=== PATIENT | female | born 1985 | race Caucasian/White ===

== ENCOUNTER 2016-10-10 11:03 | Emergency (ER) | payer OTHER ==
[2016-10-10 11:06] VITALS: BP 99/65
[2016-10-10] MEDS ORDERED: Ketorolac INJ* 30 MG/ML 1 ML VIAL IV PUSH ONE (11:09)
[2016-10-10] MEDS ORDERED: Ondansetron INJ* 2 MG/ML VIAL ONE (11:09)
[2016-10-10] MEDS ORDERED: Ondansetron INJ* 2 MG/ML VIAL IV ONE ×2 (11:09→12:18)
[2016-10-10] MEDS ORDERED: NS 0.9% 1000 ML* 1,000 ML IV ONE (11:10)
[2016-10-10] MEDS ORDERED: diPHENhydraMINE IV* 50 MG/ML 1 ml VIAL (BENADRYL) IV ONE (11:10)
--- NOTE | 2016-10-10 11:11 | ED ---
Headache - HPI Summary HPI Summary: 31 F presents with headache today. She also admits to nausea and vomiting. She has PMH of migraines. She says the headache developed shortly after she woke up. She states this is like her typically migraine. She has not taken anything for the pain. She says she normally takes Tylenol for the pain and it resolves but this time the pain is a lot worst. She admits to light sensitivity but denies any weakness, numbness, or blurry vision. She denies any abdominal pain, neck pain, or recent illness. She does not follow with anyone for her headaches. She states there is no change that she is . - History Of Current Complaint Chief Complaint: EDHeadache Stated Complaint: MIGRAINE WITH VOMITING Time Seen by Provider: 10/10/16 11:06 Hx Last Menstrual Period: 04/27/16 - Allergies/Home Medications Allergies/Adverse Reactions: Allergies Allergy/AdvReac Type Severity Reaction Status Date / Time No Known Allergies Allergy Verified 05/31/16 11:42 PMH/Surg Hx/FS Hx/Imm Hx Endocrine/Hematology History: Denies: Hx Diabetes, Hx Thyroid Disease Cardiovascular History: Denies: Hx Congestive Heart Failure, Hx Hypertension Respiratory History: Denies: Hx Asthma, Hx Chronic Obstructive Pulmonary Disease (COPD) GI History: Denies: Hx Ulcer History: Reports: Hx Kidney Stones - 2004 Musculoskeletal History: Reports: Other Musculoskeletal History - Nasal FX w/ surgery Sensory History: Reports: Hx Contacts or Glasses Opthamlomology History: Reports: Hx Contacts or Glasses Neurological History: Reports: Hx Migraine - Surgical History Surgery Procedure, Year, and Place: nasal fx- surgically repaired Infectious Disease History: No Infectious Disease History: Denies: Hx Clostridium Difficile, Hx Hepatitis, Hx Human Immunodeficiency Virus (HIV), Hx of Known/Suspected MRSA, Hx Shingles, Hx Tuberculosis, Hx Known/ Suspected VRE, Hx Known/Suspected VRSA, History Other Infectious Disease, Traveled Outside the [place] in Last 30 Days - Family History Known Family History: Positive: Other - no fam hx stroke Negative: Hypertension - Social History Alcohol Use: Occasionally Alcohol Amount: twice a week Hx Substance Use: Yes Substance Use Type: Reports: None Substance Use Comment - Amount & Last Used: LAST USED OPIATES ON 08/06/15 Hx Tobacco Use: Yes Smoking Status (MU): Current Every Day Smoker Review of Systems Negative: Fever Positive: Photophobia. Negative: Blurred Vision, Diplopia Negative: Chest Pain Negative: Shortness Of Breath Positive: Headache All Other Systems Reviewed And Are Negative: Yes Physical Exam Triage Information Reviewed: Yes Vital Signs On Initial Exam: Initial Vitals Temp Pulse Resp BP Pulse Ox 98.1 F 65 16 99/65 99 10/10/16 11:04 10/10/16 11:04 10/10/16 11:04 10/10/16 11:04 10/10/16 11:04 Vital Signs Reviewed: Yes Appearance: Positive: Well-Appearing Skin: Positive: Warm, Dry Head/Face: Positive: Normal Head/Face Inspection Eyes: Positive: Normal, EOMI, MAGAN, Conjunctiva Clear ENT: Positive: Normal ENT inspection, Pharynx normal, TMs normal, Other - no sinus tenderness Neck: Positive: Supple, Nontender, No Lymphadenopathy Respiratory/Lung Sounds: Positive: Clear to Auscultation, Breath Sounds Present Cardiovascular: Positive: Normal, RRR Abdomen Description: Positive: Nontender, Soft Bowel Sounds: Positive: Present Neurological: Positive: Sensory/Motor Intact, Alert, Oriented to Person Place, Time, CN Intact II-III Diagnostics - Vital Signs Vital Signs Temp Pulse Resp BP Pulse Ox 10/10/16 11:04 98.1 F 65 16 99/65 99 - Laboratory Lab Statement: Any lab studies that have been ordered have been reviewed, and results considered in the medical decision making process. Re-Evaluation - Re-Evaluation First Eval Re-Evaluation Time: 11:52 Change: Improved Comment: Headache has resolved, states would like 20 mins to take nap Second Eval Re-Evaluation Time: 12:25 Change: Unchanged Comment: states would like some more zofran so can make sure nausea is resolved when sits up Third Eval Re-Evaluation Time: 12:48 Change: Unchanged Comment: patient states headache resolved and is ready for d/c Headache Course/Dx - Course Course Of Treatment: 31 F presents with headache for a couple hours. Headache is the same that she has had in the past. usually resolve with tyenlol but she states that pain is worst and she started vomiting so was not able to take any medication. neuro exam normal, gave migraine cocktail, headache resolved, d/c home will return if develop any signs of meningitis or other warning signs will return, patient agrees with plan - Diagnoses Differential Diagnosis/HQI/PQRI: Meningitis, Migraine, Tension Headache, Viral Syndrome Provider Diagnoses: Headache Discharge - Discharge Plan Condition: Good Disposition: HOME Prescriptions: Ondansetron TAB* [Zofran Tab*] 4 mg PO Q6H PRN #12 tab PRN Reason: Nausea Patient Education Materials: Migraine Headache (ED) Referrals: [facility] [Outside] Additional Instructions: Take Tylenol or ibuprofen for pain every 6 hours Take Zofran every 6 hours for nausea as needed Establish care with primary care physician and follow up about headaches Return to ED if develop fever, neck stiffness, or any new or worsening symptoms
== END 2016-10-10 14:10 | disposition home or self-care (01) ==
LOC: ED 11:03
DX: R51 Headache (principal); F17.210 Nicotine dependence, cigarettes, uncomplicated; H53.149 Visual discomfort, unspecified; R11.2 Nausea with vomiting, unspecified
CPT/HCPCS: 96361; 96374; 96375; 99283; J1200; J1885; J2405

== ENCOUNTER 2017-04-13 18:51 | Emergency (ER) | payer OTHER ==
[2017-04-13] MEDS ORDERED: Ibuprofen TAB* 600 MG PO ONE (20:44)
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
[2017-04-13] MEDS ORDERED: oxyCODONE/Acetamin 5/325 MG* TAB PO ONE (22:43)
[2017-04-13] MEDS ORDERED: Amoxicillin/Clavulanate TAB* 875 MG PO ONE (22:43)
[2017-04-13 23:18] VITALS: BP 123/76
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
== END 2017-04-13 23:20 | disposition home or self-care (01) ==
LOC: ED 18:51
DX: S02.40DA Maxillary fracture, left side, initial encounter for closed fracture (principal); S02.82XA Fracture of other specified skull and facial bones, left side, initial encounter for closed fracture; S02.2XXA Fracture of nasal bones, initial encounter for closed fracture; Y04.0XXA Assault by unarmed brawl or fight, initial encounter; Y92.9 Unspecified place or not applicable
CPT/HCPCS: 70450; 70486; 72125; 99283; A9270-GY

== ENCOUNTER → 2017-08-12 08:31 | Emergency (ER) | payer OTHER ==
[~2017-08-12 08:31] MED LIST: Amoxicillin/Clavulanate TAB* 875 MG PO ONE; Ibuprofen TAB* 600 MG PO ONE; Sulfamethox/Trimethoprim DS 800/160* TAB PO ONE
[2017-08-12 08:50] VITALS: BP 102/67
[2017-08-12 09:24] LABS: Hematocrit 40 % (35-47); Hemoglobin 13.3 g/dl (12.0-16.0); Mean Corpuscular HGB Conc 33 g/dl (31-36); Mean Corpuscular Hemoglobin 29 pg (27-31); Mean Corpuscular Volume 89 fL (80-97); Mean Platelet Volume 8 um3 (7.4-10.4); Red Blood Count 4.51 10^6/ul (4.0-5.4); Red Cell Distribution Width 14 % (10.5-15); White Blood Count 23.8 10^3/ul (3.5-10.8)
[2017-08-12 09:25] LABS: Add Diff/Slide Review? Slide Review Added; Comments Flag Yes
--- NOTE | 2017-08-12 09:28 | ED ---
Psychiatric Complaint - HPI Summary HPI Summary: 32 female brought in by police after have a "freak out" and stating she wanted to hurt herself and "didn't want to live anymore". Patient's mother and boyfriend called police. Patient admits to smoking crack this morning and then was upset at her boyfriend and mother. States boyfriend and mother are against her and trying to take her kids from her and she is very stressed out. Patient got upset and yelled in front of EMS and police that she wanted to "kill herself ". However she denies currently being suicidal or homicidal. Denies chest pain, trouble breathing, nausea, vomiting and any other complaints. Denies other alcohol and other drug use. Denies hallucinations and hearing voices. No medications. No previous psych history. No PMHx. Patient was not very communicative during evaluation. - History Of Current Complaint Chief Complaint: [facility] Time Seen by Provider: 08/12/17 08:39 Hx Obtained From: Patient, Other: - police Hx Last Menstrual Period: 04/27/16 Onset/Duration: Sudden Onset Severity Initially: Moderate Severity Currently: Mild Character: Manic, Angry, Frustrated Aggravating Factor(s): Recent Stress Alleviating Factor(s): Nothing - self resolved once arrived at ED Associated Signs And Symptoms: Positive: Negative Has Suicidal: Denies: Thoughts, With A Plan Has Homicidal: Denies: Thoughts, With A Plan Recent Stressor(s): mother and boyfriend threatening to take kids away Ingestion History: Type/Name Of Drug - "smoked crack", Approximate Time Of Ingestion - this morning - Allergies/Home Medications Allergies/Adverse Reactions: Allergies Allergy/AdvReac Type Severity Reaction Status Date / Time No Known Allergies Allergy Verified 05/31/16 11:42 PMH/Surg Hx/FS Hx/Imm Hx Endocrine/Hematology History: Denies: Hx Diabetes, Hx Thyroid Disease Cardiovascular History: Denies: Hx Congestive Heart Failure, Hx Hypertension Respiratory History: Denies: Hx Asthma, Hx Chronic Obstructive Pulmonary Disease (COPD) GI History: Denies: Hx Ulcer History: Reports: Hx Kidney Stones - 2004 Musculoskeletal History: Reports: Other Musculoskeletal History - Nasal FX w/ surgery Sensory History: Reports: Hx Contacts or Glasses Opthamlomology History: Reports: Hx Contacts or Glasses Neurological History: Reports: Hx Migraine - Surgical History Surgery Procedure, Year, and Place: nasal fx- surgically repaired - Immunization History Immunizations Up to Date: Yes Infectious Disease History: No Infectious Disease History: Denies: Hx Clostridium Difficile, Hx Hepatitis, Hx Human Immunodeficiency Virus (HIV), Hx of Known/Suspected MRSA, Hx Shingles, Hx Tuberculosis, Hx Known/ Suspected VRE, Hx Known/Suspected VRSA, History Other Infectious Disease, Traveled Outside the [place] in Last 30 Days - Family History Known Family History: Positive: Other - no fam hx stroke Negative: Hypertension - Social History Alcohol Use: Occasionally Alcohol Amount: twice a week Hx Substance Use: Yes Substance Use Type: Reports: Cocaine, Marijuana Substance Use Comment - Amount & Last Used: LAST USED OPIATES ON 08/06/15 Hx Tobacco Use: Yes Smoking Status (MU): Current Every Day Smoker Review of Systems Constitutional: Negative Cardiovascular: Negative Respiratory: Negative Gastrointestinal: Negative Musculoskeletal: Negative Positive: Anxious All Other Systems Reviewed And Are Negative: Yes Physical Exam Triage Information Reviewed: Yes Vital Signs On Initial Exam: Initial Vitals Temp Pulse Resp BP Pulse Ox 98.9 F 125 20 125/85 96 08/12/17 08:32 08/12/17 08:32 08/12/17 08:32 08/12/17 08:32 08/12/17 08:32 slight tachycardia noted however patient anxious, just experienced an intense event Vital Signs Reviewed: Yes Appearance: Positive: Well-Appearing, No Pain Distress, Well-Nourished Skin: Positive: Warm, Skin Color Reflects Adequate Perfusion, Dry, Erythema @ - small bumps/bites rash throughout skin exam hands and feet, no abscesses. Negative: Cold, Numb, Cyanosis @, Jaundiced Head/Face: Positive: Normal Head/Face Inspection - small contusion with an abrasion noted on right side of forehead, patient states she does not know how she got it but it is from today. Negative: Scalp Eyes: Positive: Normal, EOMI, MAGAN, Conjunctiva Clear ENT: Positive: Normal ENT inspection, Hearing grossly normal, Pharynx normal, Nasal congestion, TMs normal. Negative: TM bulging, TM dull Neck: Positive: Supple, Nontender Respiratory/Lung Sounds: Positive: Clear to Auscultation, Breath Sounds Present , Decreased Breath Sounds. Negative: Rales, Rhonchi, Wheezes Cardiovascular: Positive: Normal, RRR, Pulses are Symmetrical in both Upper and Lower Extremities. Negative: Leg Edema Left, Leg Edema Right Abdomen Description: Positive: Nontender, Soft Bowel Sounds: Positive: Present Musculoskeletal: Positive: Normal, Strength/ROM Intact Neurological: Positive: Normal, Sensory/Motor Intact, Alert, Oriented to Person Place, Time, CN Intact II-III, Reflexes Intact, NV Bundle Intact Distally, Normal Gait Psychiatric: Positive: Patient Uncooperative for Exam - not very communicative and appears angry - [place] Coma Scale Coma Scale Total: 15 Diagnostics - Vital Signs Vital Signs Temp Pulse Resp BP Pulse Ox 08/12/17 08:41 97.9 F 115 18 102/67 99 08/12/17 08:32 98.9 F 125 20 125/85 96 - Laboratory Result Diagrams: 08/12/17 09:07 08/12/17 09:07 Lab Statement: Any lab studies that have been ordered have been reviewed, and results considered in the medical decision making process. - Radiology chest Xray Interpretation: No Acute Changes - No radiographic evidence of acute cardiopulmonary disease. Radiology Interpretation Completed By: Radiologist Course/Dx - Course Course Of Treatment: labs and urinalysis obtained. also obtained hcg test which was negative. labs revealed elevated WBC of 23.4 with left shift. Rest of labs unremarkable. Patient is asymptomatic denying symptoms, fever and signs of infection. chest xray obtained and negative. Does however have possible infected skin wounds/cellulitis or bites throughout skin possibly contributing to WBC elevation. Patient later shared that she has sinus issues, and that may be the source of her infection, does admit to nasal congestion and had surgery on sinuses back in april of 2017. patient denied SOB, chest pain, nausea, abscess, IV drug use, vomiting, fever/chills. afebrile. normal vitals other than slight tachycardia. will give antibiotics, augmentin, for possible skin infection, sinusitis and due to WBC with left shift. cleared for [facility]. no other concerning medical etiology at this time. no medications. patient appears frustrated and upset, after "smoking crack" however denies suicidal thoughts at this time. Somewhat uncooperative on eval and with communicating. Denies any symptoms or complaints throughout exam. After speaking with [facility] patient will be discharged home with outpatient follow up by Dr Harrison diagnosis of substance abuse disorder at 2:00pm. - Differential Dx/Clinical Impression Differential Diagnosis/HQI/PQRI: Positive: Acute Psychosis, Anxiety, Depression , Suicidal Ideation, Other - drug use Provider Diagnosis: Cellulitis, Sinusitis, Substance abuse - Physician Notifications Discussed Care Of Patient With: Dr Christy Herrera Time Discussed With Above Provider: 14:03 Patient Is Medically Stable For: Psych Evaluation Discharge - Discharge Plan Condition: Stable Disposition: HOME Prescriptions: Amoxicillin/Clavulanate TAB* [Augmentin TAB 875*] 875 mg PO BID #18 tab Referrals: No Primary Care Phys,NOPCP [Primary Care Provider] - [facility] PHYSICIAN REFERRAL [Outside]
[2017-08-12 09:33] LABS: ALT 14 U/L (7-52); AST 19 U/L (13-39); Albumin 4.2 g/dL (3.2-5.2); Alkaline Phosphatase 70 U/L (34-104); Anion Gap 9 mmol/L (2-11); BUN/Creatinine Ratio 11.5 (8-20); Blood Urea Nitrogen 14 mg/dL (6-24); CO2 Carbon Dioxide 24 mmol/L (22-32); Calcium 9.3 mg/dL (8.6-10.3); Chloride 104 mmol/L (101-111); EGFR African American 65.7 (>60); EGFR Non-African American 51.1 (>60); Globulin 2.6 g/dL (2-4); Glucose 71 mg/dL (70-100); Potassium 3.1 mmol/L (3.5-5.0); Sodium 137 mmol/L (133-145); Total Protein 6.8 g/dL (6.4-8.9)
[2017-08-12 09:58] LABS: Acetaminophen < 15 mcg/mL; Alcohol < 10 mg/dL (<10); Salicylate < 2.50 mg/dL (<30)
[2017-08-12 10:13] LABS: TSH (Thyroid Stimulating Horm) 0.78 mcIU/mL (0.34-5.60)
[2017-08-12 11:20] LABS: Urine Bacteria Absent (Absent); Urine Bilirubin Negative (Negative); Urine Glucose Negative (Negative); Urine Nitrite Negative (Negative)
[2017-08-12 11:23] LABS: Benzodiazepine Urine Screen None Detected (None Detect)
--- NOTE | 2017-08-12 12:00 | RAD ---
INDICATION: Leukocytosis COMPARISON: None TECHNIQUE: PA and lateral views of the chest were obtained. FINDINGS: The heart and mediastinum are normal in size and contour. The lungs are grossly clear. There is no evidence of large pleural effusion. Visualized bones are normal for the patient's age. There is no radiographic evidence of free air beneath the diaphragm IMPRESSION: No radiographic evidence of acute cardiopulmonary disease.
--- NOTE | 2017-08-14 09:11 | PN ---
Progress Note - Progress Note Date of Service: 08/12/17 Note: brought in as a 941. no urinary symptoms, urinalysis was unremarkable. preliminary urine culture results show 75-100,000 of kelb penumoniae. placed on augmentin at d/c. will wait for final culture results.
== END | disposition home or self-care (01) ==
LOC: ED 08:31
DX: L03.90 Cellulitis, unspecified (principal); J32.9 Chronic sinusitis, unspecified; F17.210 Nicotine dependence, cigarettes, uncomplicated; F19.10 Other psychoactive substance abuse, uncomplicated
CPT/HCPCS: 36415; 71020; 80053; 80307; 80320; 80329; 81003; 81015; 84443; 84702; 85025; 87077; 87086; 87186; 99284; A9270-GY; G0480

== ENCOUNTER 2017-12-16 12:54 | Emergency (ER) | payer OTHER ==
[2017-12-16 13:30] VITALS: BP 108/71
--- NOTE | 2017-12-16 14:53 | UC ---
Beata Mckenna Gabriel, scribed for April Ruiz MD on 12/16/17 at 1444 . Ear Complaint HPI - HPI Summary HPI Summary: This patient is a 32 year old F presenting to [facility] with a chief complaint of right ear pain that began a week ago. The patient rates the pain 7/10 in severity. Patient reports that last night her cervical lymph nodes began to swell and her throat became sore. She also c/o low grade fever, sore throat, frontal headache, nasal discharge, nausea, and decreased hearing in her right ear. Patient denies vomiting, vertigo, fatigue, and ABD pain. - History of Current Complaint Chief Complaint: UCGeneralIllness Stated Complaint: EAR PAIN SWOLLEN GLANDS Time Seen by Provider: 12/16/17 14:34 Hx Obtained From: Patient Hx Last Menstrual Period: 12/11/17 Onset/Duration: Lasting Weeks - 1, Still Present Severity Initially: Moderate Severity Currently: Moderate Pain Intensity: 7 Pain Scale Used: 0-10 Numeric Associated Signs/Symptoms: Positive: Hearing Loss - Allergies/Home Medications Allergies/Adverse Reactions: Allergies Allergy/AdvReac Type Severity Reaction Status Date / Time No Known Allergies Allergy Verified 12/16/17 13:22 Home Medications: Home Medications Citalopram TAB* [CeleXA TAB*] 20 mg PO DAILY 12/16/17 [History Confirmed ] Gabapentin CAP(*) [Neurontin 300 CAP(*)] 300 mg PO BEDTIME 12/16/17 [History Confirmed 12/16/17] OXcarbazepine [Trileptal 150 mg] 150 mg PO DAILY 12/16/17 [History Confirmed ] PMH/Surg Hx/FS Hx/Imm Hx GI/ History: Kidney Stones Psychological History: Anxiety, Depression - Surgical History Surgical History: Yes Surgery Procedure, Year, and Place: nasal fx- surgically repaired 2016 - Family History Known Family History: Positive: Other - no fam hx stroke Negative: Hypertension Family History: mother has hypothyroidism - Social History Occupation: Unemployed Lives: With Family Alcohol Use: None Alcohol Amount: twice a week Substance Use Type: None Substance Use Comment - Amount & Last Used: LAST USED OPIATES ON 08/06/15 Smoking Status (MU): Current Every Day Smoker Length of Time of Smoking/Using Tobacco: 1 PPD - Immunization History Most Recent Influenza Vaccination: 06/20/12 Most Recent Tetanus Shot: Unsure Most Recent Pneumonia Vaccination: never Review of Systems Constitutional: Fever Skin: Negative Eyes: Negative ENT: Sore Throat, Ear Ache, Nasal Discharge, Other - swollen cervical lymph nodes and decreased hearing in her right ear Respiratory: Negative Cardiovascular: Negative Gastrointestinal: Nausea Genitourinary: Negative Motor: Negative Neurovascular: Negative Musculoskeletal: Negative Neurological: Negative Psychological: Negative Is Patient Immunocompromised?: No All Other Systems Reviewed And Are Negative: Yes Physical Exam Triage Information Reviewed: Yes Appearance: Ill-Appearing - looks mildly unwell, fatigued Vital Signs: Initial Vital Signs Temp 99.2 F 12/16/17 13:24 Pulse 102 12/16/17 13:24 Resp 20 12/16/17 13:24 BP 108/71 12/16/17 13:24 Pulse Ox 100 12/16/17 13:24 Eyes: Positive: Conjunctiva Clear ENT: Positive: Pharyngeal erythema Neck: Positive: Supple, Nontender, Enlarged Nodes @ - large right tonsillar node 2 x 2 cm, mobile and compressible. 1 cm posterior cervical node on the right. Respiratory: Positive: Lungs clear, Normal breath sounds Cardiovascular: Positive: RRR, No Murmur Musculoskeletal Exam: Normal Neurological: Positive: Alert, Muscle Tone Normal Psychological Exam: Other - mildly flat affect. Skin Exam: Normal Ear Complaint Course/Dx - Course Course Of Treatment: The patient is a 32 y/o F that present with right ear pain , sore throat, frontal [place], and nasal discharge that began a week ago. Pt medications reviewed this visit. Pt was encouraged to stop smoking. - Differential Dx/Diagnosis Differential Diagnosis/HQI/PQRI: Otitis Externa, Otitis Media, Pharyngitis, URI , Other - sinusitis Provider Diagnoses: sinusitis Discharge - Sign-Out/Discharge Documenting (check all that apply): Discharge - Discharge Plan Condition: Stable Disposition: HOME Prescriptions: Amoxicillin/Clavulanate TAB* [Augmentin TAB 875*] 875 mg PO BID #20 tab Patient Education Materials: Sinusitis (ED) Forms: *Work Release Referrals: No Primary Care Phys,NOPCP [Primary Care Provider] - Additional Instructions: Begin augmentin for treatment of sinusitis Use ibuprofen or acetaminophen as needed for control of pain. Flonast (fluticasone) spray might help to relieve the ear pressure by helping to open the Eustachian tube. - Billing Disposition and Condition Condition: STABLE Disposition: HOME The documentation as recorded by the Beata mehta Gabriel accurately reflects the service I personally performed and the decisions made by me, April Ruiz MD.
== END 2017-12-16 14:56 | disposition home or self-care (01) ==
LOC: UCEAST 12:54
DX: J32.9 Chronic sinusitis, unspecified (principal); H92.01 Otalgia, right ear; R50.9 Fever, unspecified; Z87.442 Personal history of urinary calculi; F41.9 Anxiety disorder, unspecified; F32.9 Major depressive disorder, single episode, unspecified; F17.210 Nicotine dependence, cigarettes, uncomplicated
CPT/HCPCS: 99212; G0463

== ENCOUNTER 2018-01-31 12:43 | Emergency (ER) | payer MEDICAID, OTHER ==
[2018-01-31 12:58] VITALS: BP 103/56
[2018-01-31] MEDS ORDERED: cefTRIAXone VIAL(*) 250 MG VIAL IM ONE (14:02)
[2018-01-31] MEDS ORDERED: Azithromycin TAB* 250 MG PO ONE (14:02)
[2018-01-31] MEDS ORDERED: Lidocaine 1% INJ* 10 MG/ML 30 ML SDV INJ ONE (14:06)
[2018-01-31] MEDS ORDERED: Lidocaine 1% MPF* 2 ML VIAL INJ ONE (14:13)
--- NOTE | 2018-01-31 14:13 | UC ---
Abdominal Pain Female HPI - HPI Summary HPI Summary: 32 y/o female w no PMH, 1 vaginal 5 years ago, recent visit to [facility] observer - abn pap, scheduled for cylop, presents with 24 hours of diarrhea x 10 episodes , no n/v, no urinary symptoms, + vaginal discharge, lower abdominal pain b/l. no prior symptoms, denies pregnany- last sexual activity 3 weeks ago, + condom use, took recent test which was negative. Also recently had small plastic bag of weed in vaginal area for several hours, difficulty removing , wondering if pain caused by this. - History of Current Complaint Chief Complaint: UCAbdominalPain Stated Complaint: ABDOMINAL PAIN Time Seen by Provider: 01/31/18 13:03 Hx Obtained From: Patient Hx Last Menstrual Period: 01/21/18 ?: No - Urine test Onset/Duration: Sudden Onset Severity Currently: Moderate Pain Intensity: 8 Pain Scale Used: 0-10 Numeric Allergies/Adverse Reactions: Allergies Allergy/AdvReac Type Severity Reaction Status Date / Time No Known Allergies Allergy Verified 01/31/18 12:53 PMH/Surg Hx/FS Hx/Imm Hx Previously Healthy: Yes - Surgical History Surgical History: Yes Surgery Procedure, Year, and Place: nasal fx- surgically repaired 2016 - Family History Known Family History: Positive: Other - no fam hx stroke Negative: Hypertension Family History: mother has hypothyroidism - Social History Alcohol Use: None Alcohol Amount: twice a week Substance Use Type: None Substance Use Comment - Amount & Last Used: LAST USED OPIATES ON 08/06/15 Smoking Status (MU): Heavy Every Day Tobacco Smoker Type: Cigarettes Length of Time of Smoking/Using Tobacco: 1 PPD - Immunization History Most Recent Influenza Vaccination: 06/20/12 Most Recent Tetanus Shot: Unsure Most Recent Pneumonia Vaccination: never Review of Systems Gastrointestinal: Abdominal Pain, Diarrhea Genitourinary: Vaginal/Penile Discharge, Vaginal/Penile Pain, Vaginal/Penile Tenderness Psychological: Anxious Is Patient Immunocompromised?: No All Other Systems Reviewed And Are Negative: Yes Physical Exam Triage Information Reviewed: Yes Appearance: Well-Appearing, No Pain Distress, Well-Nourished Vital Signs: Initial Vital Signs Temp 98.9 F 01/31/18 12:49 Pulse 103 01/31/18 12:49 Resp 18 01/31/18 12:49 BP 103/56 01/31/18 12:49 Pulse Ox 97 01/31/18 12:49 Vital Signs Reviewed: Yes Eyes: Positive: Conjunctiva Clear Abdomen Description: Positive: No Organomegaly, Soft, Other: - tenderness at b/ l lower abdomen and suprapubic, + cervical motion tenderness. Negative: CVA Tenderness (R), CVA Tenderness (L), Distended, Guarding Bowel Sounds: Positive: Present Pelvic Exam: Positive: External Exam Normal, Cervicitis - strawberry cervix with white coating over cervix, Discharge - milky, thick discharge no odor, Tender w/ Cervical Motion, Tender Adnexa, Tender Uterus, Other - + adenal tenderness b/l. Negative: Active Bleeding, Blood, Lesions, Mass, Ulcers Musculoskeletal: Positive: Strength Intact Neurological: Positive: Alert Psychological Exam: Normal Skin Exam: Normal Skin: Positive: Other - no rashes lesions Abd Pain Female Course/Dx - Course Course Of Treatment: pelvic exam suspcious for STD infection, urine preg. ceftraixone, azithr given. follow up with [facility]. return if symptoms worsen or no improvement within 24-48 hours - Differential Dx/Diagnosis Differential Diagnosis: Pelvic Inflammatory Disease, , Urinary Tract Infection Provider Diagnoses: PID Discharge - Sign-Out/Discharge Documenting (check all that apply): Discharge/Admit/Transfer - Discharge Plan Condition: Good Disposition: HOME Patient Education Materials: Cervicitis (ED), Sexually Transmitted Diseases (ED ), Chlamydia (ED) Referrals: No Primary Care Phys,NOPCP [Primary Care Provider] - Additional Instructions: - return to UC or ER within 24-48 hours if symptoms worsen or do not improve or fever > 101 - Tylenol, motrin as needed for pain - Follow up with [facility] - Testing should be completed within 48-72 hours, you may call for results or we will call with positive results - no sexual intercourse until results given - Billing Disposition and Condition Condition: GOOD Disposition: HOME
--- NOTE | 2018-02-01 16:37 | UC ---
- Progress Note Progress Note: PLS CALL PT. SWAB POSITIVE FOR BV. METRONIDAZOLE 500MG BID X 7 DAYS. NO ALCOHOL WHILE ON THIS MED. ERX SENT TO. [facility]. F/U PCP - DIPTI MAYORGA MD Discharge - Sign-Out/Discharge Documenting (check all that apply): Post-Discharge Follow Up - Discharge Plan Condition: Good Disposition: HOME Patient Education Materials: Cervicitis (ED), Chlamydia (ED), Sexually Transmitted Diseases (ED) Referrals: No Primary Care Phys,NOPCP [Primary Care Provider] - Additional Instructions: - return to UC or ER within 24-48 hours if symptoms worsen or do not improve or fever > 101 - Tylenol, motrin as needed for pain - Follow up with [facility] - Testing should be completed within 48-72 hours, you may call for results or we will call with positive results - no sexual intercourse until results given - Billing Disposition and Condition Condition: GOOD Disposition: HOME
== END 2018-01-31 14:27 | disposition home or self-care (01) ==
LOC: UCEAST 12:43
DX: N73.9 Female pelvic inflammatory disease, unspecified (principal); N76.0 Acute vaginitis; F17.210 Nicotine dependence, cigarettes, uncomplicated
CPT/HCPCS: 84702; 87480; 87491; 87510; 87591; 87661; 96372; 99212; A9270-GY; G0463; J0696

== ENCOUNTER 2018-04-18 20:17 | Emergency (ER) | payer OTHER ==
[2018-04-18 20:32] VITALS: BP 112/77
--- NOTE | 2018-04-18 21:24 | UC ---
Abdominal Pain Female HPI - HPI Summary HPI Summary: Patient is here tonight with 2 chief complaints. #1 patient has dental pain and swelling of the right anterior cervical lymph node seen a dentist last week has not been yet approved for flu canal no antibiotics started. #2 patient has had 2 or 3 days of worsening nausea, night sweats, has been eating very little due to nausea. Only liquids tolerated today - History of Current Complaint Chief Complaint: UCDentalProblem Stated Complaint: DENTAL COMPLAINT Time Seen by Provider: 04/18/18 21:09 Hx Obtained From: Patient Hx Last Menstrual Period: 03/16/18 ?: No Onset/Duration: Sudden Onset - 2-3 days of worsening abdomen pain, Gradual Onset - 2-3 weeks of worsening right upper incisor pain and gum swelling, Still Present Timing: Constant Pain Intensity: 8 Pain Scale Used: 0-10 Numeric Location: Discrete At: RLQ Aggravating Factor(s): Food Alleviating Factor(s): Nothing Associated Signs and Symptoms: Positive: Nausea, Diarrhea, Other: - night sweats Allergies/Adverse Reactions: Allergies Allergy/AdvReac Type Severity Reaction Status Date / Time No Known Allergies Allergy Verified 04/18/18 20:32 Home Medications: Home Medications traZODone TAB* [Desyrel TAB*] 25 mg PO BEDTIME 04/18/18 [History Confirmed 04/18] PMH/Surg Hx/FS Hx/Imm Hx Previously Healthy: No Psychological History: Depression, Bipolar Disorder, Other Other Psychological History: substance abuse disorder in remission - Surgical History Surgical History: Yes Surgery Procedure, Year, and Place: nasal fx- surgically repaired 2016 - Family History Known Family History: Positive: Other - no fam hx stroke Negative: Hypertension Family History: mother has hypothyroidism - Social History Occupation: Student Lives: With Family Alcohol Use: None Alcohol Amount: twice a week Substance Use Type: None Substance Use Comment - Amount & Last Used: LAST USED OPIATES ON 08/06/15 Smoking Status (MU): Heavy Every Day Tobacco Smoker Type: Cigarettes Length of Time of Smoking/Using Tobacco: 1 PPD Have You Smoked in the Last Year: Yes - Immunization History Most Recent Influenza Vaccination: 06/20/12 Most Recent Tetanus Shot: Unsure Most Recent Pneumonia Vaccination: never Review of Systems Constitutional: Fever, Chills Skin: Negative Eyes: Negative ENT: Dental Pain Respiratory: Negative Cardiovascular: Negative Gastrointestinal: Abdominal Pain, Diarrhea, Nausea Genitourinary: Negative Motor: Negative Neurovascular: Negative Musculoskeletal: Negative Neurological: Negative Psychological: Negative Is Patient Immunocompromised?: No All Other Systems Reviewed And Are Negative: Yes Physical Exam Triage Information Reviewed: Yes Appearance: No Pain Distress, Ill-Appearing - mild, Thin Vital Signs: Initial Vital Signs Temp 97.9 F 04/18/18 20:28 Pulse 71 04/18/18 20:28 Resp 18 04/18/18 20:28 BP 112/77 04/18/18 20:28 Pulse Ox 100 04/18/18 20:28 Vital Signs Reviewed: Yes Eye Exam: Normal Eyes: Positive: Conjunctiva Clear ENT Exam: Normal ENT: Positive: Normal ENT inspection, Hearing grossly normal, Pharynx normal, TMs normal, Dental tenderness, Uvula midline. Negative: Nasal congestion, Trismus, Muffled voice, Hoarse voice, Sinus tenderness Dental Exam: Other Dental: Positive: Percussion Tenderness @ - #8, Abscess @ - above upper incisors Neck exam: Normal Neck: Positive: Supple, Nontender, Enlarged Nodes @ - right anterior cervical lymph swelling Respiratory Exam: Normal Respiratory: Positive: Chest non-tender, No respiratory distress, No accessory muscle use Cardiovascular Exam: Normal Cardiovascular: Positive: RRR, No Murmur, Pulses Normal, Brisk Capillary Refill Abdominal Exam: Other Abdomen Description: Positive: No Organomegaly, Soft, McBurney's Point Tenderness. Negative: CVA Tenderness (R), CVA Tenderness (L) Bowel Sounds: Positive: Present Musculoskeletal Exam: Normal Musculoskeletal: Positive: Strength Intact, ROM Intact, No Edema Neurological Exam: Normal Neurological: Positive: Alert, Muscle Tone Normal Psychological Exam: Normal Skin Exam: Normal Abd Pain Female Course/Dx - Course Course Of Treatment: will treat dental issue with amoxicillin and Ibuprofen, Patient to remian NPO and go to emergency department for further evaluation of abdomen pain - Differential Dx/Diagnosis Provider Diagnoses: Dental abscess, RLQ Pain Discharge - Sign-Out/Discharge Documenting (check all that apply): Patient Departure - Discharge Plan Condition: Fair Disposition: HOME-RECOMMEND TO ED Prescriptions: Amoxicillin PO (*) [Amoxicillin 500 MG CAP*] 500 mg PO TID #30 cap Patient Education Materials: Dental Abscess (ED), Acute Abdominal Pain (ED) Referrals: No Primary Care Phys,NOPCP [Primary Care Provider] - Additional Instructions: Please go to the emergency department tonight for evaluation of nausea, night sweats right lower quad. pain - Billing Disposition and Condition Condition: FAIR Disposition: Home-Recommend to ED
== END 2018-04-18 21:30 | disposition home health service (06) ==
LOC: UCEAST 20:17
DX: K04.7 Periapical abscess without sinus (principal); R10.31 Right lower quadrant pain; F32.9 Major depressive disorder, single episode, unspecified; F31.9 Bipolar disorder, unspecified; F17.210 Nicotine dependence, cigarettes, uncomplicated; Z79.899 Other long term (current) drug therapy
CPT/HCPCS: 99212; G0463

== ENCOUNTER 2018-04-19 09:41 | Emergency (ER) | payer OTHER ==
--- NOTE | 2018-04-19 10:00 | ED ---
Neck Pain - HPI Summary HPI Summary: The patient is a 32 y/o female presenting to the [facility] c/o a ruptured dental abscess since 3 days ago. She went to Urgent Care last night but did not have any procedures done. She notes dental pain, swollen neck, R lower abdominal pain , nausea, night sweats, chills and, diarrhea. The pt. denies fever. She has not taken any antibiotics for the abscess but has an upcoming follow-up appointment with her dentist. Pt. denies the possibility of . LNMP 2 weeks ago. PMHx: Bipolar Disorder This is tyson Phillips documenting for attending Dr. Roberto Mota - History of Current Complaint Chief Complaint: EDGeneral Stated Complaint: ABSCESS/GENERAL ILLNESS Time Seen by Provider: 04/19/18 09:50 Hx Obtained From: Patient Hx Last Menstrual Period: 03/16/18 Onset/Duration Of Injury/Symptoms: Days - 3 days ago Onset/Duration: Still Present Severity Initially: Severe Severity Currently: Severe Pain Intensity: 8 Pain Scale Used: 0-10 Numeric Associated Signs & Symptoms: Positive: Swelling - Right side of the neck - Allergies/Home Medications Allergies/Adverse Reactions: Allergies Allergy/AdvReac Type Severity Reaction Status Date / Time No Known Allergies Allergy Verified 04/19/18 09:59 PMH/Surg Hx/FS Hx/Imm Hx Previously Healthy: No Endocrine/Hematology History: Denies: Hx Diabetes, Hx Thyroid Disease Cardiovascular History: Denies: Hx Congestive Heart Failure, Hx Hypertension Respiratory History: Denies: Hx Asthma, Hx Chronic Obstructive Pulmonary Disease (COPD) GI History: Denies: Hx Ulcer History: Reports: Hx Kidney Stones - 2004 Musculoskeletal History: Reports: Other Musculoskeletal History - Nasal FX w/ surgery Sensory History: Reports: Hx Contacts or Glasses Opthamlomology History: Reports: Hx Contacts or Glasses Neurological History: Reports: Hx Migraine Psychiatric History: Reports: Hx Bipolar Disorder Denies: Hx Eating Disorder, Hx of Violent Episodes Against Others - Surgical History Surgery Procedure, Year, and Place: nasal fx- surgically repaired 2016 Infectious Disease History: No Infectious Disease History: Denies: Hx Clostridium Difficile, Hx Hepatitis, Hx Human Immunodeficiency Virus (HIV), Hx of Known/Suspected MRSA, Hx Shingles, Hx Tuberculosis, Hx Known/ Suspected VRE, Hx Known/Suspected VRSA, History Other Infectious Disease, Traveled Outside the [place] in Last 30 Days - Family History Known Family History: Positive: Other - no fam hx stroke Negative: Hypertension Family History: mother has hypothyroidism - Social History Occupation: Unemployed Lives: With Family Alcohol Use: None Alcohol Amount: twice a week Hx Substance Use: Yes Substance Use Type: Reports: None Substance Use Comment - Amount & Last Used: LAST USED OPIATES ON 08/06/15 Hx Tobacco Use: Yes Smoking Status (MU): Heavy Every Day Tobacco Smoker Type: Cigarettes Length of Time of Smoking/Using Tobacco: 1 PPD Have You Smoked in the Last Year: Yes Review of Systems Positive: Chills, Skin Diaphoresis. Negative: Fever ENT: Other - Positive: Right neck swelling Positive: Dental Pain Positive: Diarrhea, Nausea All Other Systems Reviewed And Are Negative: Yes Physical Exam - Summary Physical Exam Summary: Appearance: Well appearing, no pain distress Skin: warm, dry, reflects adequate perfusion Head/face: normal Eyes: EOMI, MAGAN ENT: - No gingival redness or swelling ;no adenopathy; enlarged, slightly tender R tonsil Neck: supple, non-tender Respiratory: CTA, breath sounds present Cardiovascular: RRR, pulses symmetrical Abdomen: non-tender, soft Bowel Sounds: present Musculoskeletal: normal, strength/ROM intact Neuro: normal, sensory motor intact, A&Ox3 Triage Information Reviewed: Yes Vital Signs On Initial Exam: Initial Vitals Temp Pulse Resp BP Pulse Ox 98.8 F 80 16 115/77 100 04/19/18 09:44 04/19/18 09:44 04/19/18 09:44 04/19/18 09:44 04/19/18 09:44 Vital Signs Reviewed: Yes Diagnostics - Vital Signs Vital Signs Temp Pulse Resp BP Pulse Ox 04/19/18 09:44 98.8 F 80 16 115/77 100 - Laboratory Lab Statement: Any lab studies that have been ordered have been reviewed, and results considered in the medical decision making process. Neck Course/Dx - Course Course Of Treatment: Patient with recently diagnosed dental abscess by x-ray was not given antibiotics as a plan to do surgery. No pain at this point but having right-sided adenopathy. Abdomen is soft and nontender. She has had some nausea vomiting and diarrhea. Unlikely these are related. She has not been sexually active and states is not possible. She is feeling okay now and we will start antibiotics. Gale Zhu was given here. She'll follow-up with dental in her primary care physician. - Diagnoses Provider Diagnoses: Gastroenteritis, Dental abscess Discharge - Sign-Out/Discharge Documenting (check all that apply): Patient Departure - DC - Discharge Plan Condition: Good Disposition: HOME Prescriptions: Amoxicillin PO (*) [Amoxicillin 500 MG CAP*] 500 mg PO TID #30 cap Ondansetron HCl [Zofran] 4 mg PO TID PRN #12 tablet PRN Reason: Nausea Patient Education Materials: Dental Abscess (ED), Gastroenteritis (ED) Referrals: [facility] [Provider Group] No Primary Care Phys,NOPCP [Primary Care Provider] - Additional Instructions: Call today to schedule follow-up appointment with your primary care physician and also [facility]. Return with fever, unable to keep down fluids, worse, new symptoms or other concerns as discussed. Drink plenty of fluids, bland diet as tolerated. - Billing Disposition and Condition Condition: GOOD Disposition: Home
[2018-04-19] MEDS ORDERED: Ondansetron ODT TAB* 4 MG PO ONE (10:03)
[2018-04-19 10:32] VITALS: BP 99/68
== END 2018-04-19 10:32 | disposition home or self-care (01) ==
LOC: ED 09:41
DX: K04.7 Periapical abscess without sinus (principal); K52.9 Noninfective gastroenteritis and colitis, unspecified; F31.9 Bipolar disorder, unspecified; F17.210 Nicotine dependence, cigarettes, uncomplicated
CPT/HCPCS: 99282; A9270-GY

== ENCOUNTER 2018-04-27 23:58 | Emergency (ER) | payer OTHER ==
[2018-04-28] MEDS ORDERED: NS 0.9% 1000 ML* 1,000 ML IV ONE ×2 (00:27→03:21)
[2018-04-28] MEDS ORDERED: Charcoal ACTIVATED* 25 GM/120 ML BTL PO ONE (00:27)
--- NOTE | 2018-04-28 00:32 | ED ---
Complex/Multi-Sys Presentation - HPI Summary HPI Summary: This is scribe Travis Graham documenting for attending Ling Locke MD. This patient is a 32 year old F presenting to [facility] with a chief complaint of an overdose since 2 hours ago. Patient reports dizziness and numb lips. She has been having sleep walking issues where she finds herself eating things. Per patient, boyfriend found her eating Trileptal 300mg in cereal in the bathroom tonight. It is unknown how many pills she has taken. She believes it was Trileptal because that was the bottle that was open but reports that she also has many other medications. Patient unsuccessfully tried to make herself throw up. I, Dr. Locke, personally performed the services described in this documentation as scribed in my presence and it is both accurate and complete. - History Of Current Complaint Chief Complaint: EDOverdose Time Seen by Provider: 04/28/18 00:20 Hx Obtained From: Patient Onset/Duration: Sudden Onset Associated Signs And Symptoms: Positive: Dizziness, Other - Numb lips - Allergies/Home Medications Allergies/Adverse Reactions: Allergies Allergy/AdvReac Type Severity Reaction Status Date / Time No Known Allergies Allergy Verified 04/19/18 09:59 PMH/Surg Hx/FS Hx/Imm Hx Endocrine/Hematology History: Denies: Hx Diabetes, Hx Thyroid Disease Cardiovascular History: Denies: Hx Congestive Heart Failure, Hx Hypertension Respiratory History: Denies: Hx Asthma, Hx Chronic Obstructive Pulmonary Disease (COPD) GI History: Denies: Hx Ulcer History: Reports: Hx Kidney Stones - 2004 Musculoskeletal History: Reports: Other Musculoskeletal History - Nasal FX w/ surgery Sensory History: Reports: Hx Contacts or Glasses Opthamlomology History: Reports: Hx Contacts or Glasses Neurological History: Reports: Hx Migraine Psychiatric History: Reports: Hx Bipolar Disorder Denies: Hx Eating Disorder, Hx of Violent Episodes Against Others - Surgical History Surgery Procedure, Year, and Place: nasal fx- surgically repaired 2016 Infectious Disease History: No Infectious Disease History: Denies: Hx Clostridium Difficile, Hx Hepatitis, Hx Human Immunodeficiency Virus (HIV), Hx of Known/Suspected MRSA, Hx Shingles, Hx Tuberculosis, Hx Known/ Suspected VRE, Hx Known/Suspected VRSA, History Other Infectious Disease, Traveled Outside the [place] in Last 30 Days - Family History Known Family History: Positive: Other - no fam hx stroke Negative: Hypertension Family History: mother has hypothyroidism - Social History Occupation: Unemployed Lives: With Family Alcohol Use: None Alcohol Amount: twice a week Hx Substance Use: Yes Substance Use Type: Reports: None Substance Use Comment - Amount & Last Used: LAST USED OPIATES ON 08/06/15 Hx Tobacco Use: Yes Smoking Status (MU): Heavy Every Day Tobacco Smoker Type: Cigarettes Length of Time of Smoking/Using Tobacco: 1 PPD Have You Smoked in the Last Year: Yes Review of Systems Negative: Fever Neurological: Other - Dizziness and numb lips All Other Systems Reviewed And Are Negative: Yes Physical Exam - Summary Physical Exam Summary: VITAL SIGNS: Reviewed. GENERAL: Patient is a well-developed and nourished FEMALE who is lying comfortable in the stretcher. Patient is not in any acute respiratory distress. HEAD AND FACE: No signs of trauma. No ecchymosis, hematomas or skull depressions. No sinus tenderness. EYES: PERRLA, EOMI x 2, No injected conjunctiva, no nystagmus. EARS: Hearing grossly intact. Ear canals and tympanic membranes are within normal limits. MOUTH: Oropharynx within normal limits. NECK: Supple, trachea is midline, no adenopathy, no JVD, no carotid bruit, no c- spine tenderness, neck with full ROM. CHEST: Symmetric, no tenderness at palpation LUNGS: Clear to auscultation bilaterally. No wheezing or crackles. CVS: Regular rate and rhythm, S1 and S2 present, no murmurs or gallops appreciated. ABDOMEN: Soft, non-tender. No signs of distention. No rebound no guarding, and no masses palpated. Bowel sounds are normal. EXTREMITIES: FROM in all major joints, no edema, no cyanosis or clubbing. NEURO: Alert and oriented x 3. No acute neurological deficits. Speech is normal and follows commands. SKIN: Dry and warm Triage Information Reviewed: Yes Vital Signs On Initial Exam: Initial Vitals Temp Pulse Resp BP Pulse Ox 98.9 F 89 20 120/83 99 04/27/18 23:59 04/27/18 23:59 04/27/18 23:59 04/27/18 23:59 04/27/18 23:59 Vital Signs Reviewed: Yes Diagnostics - Vital Signs Vital Signs Temp Pulse Resp BP Pulse Ox 04/27/18 23:59 98.9 F 89 20 120/83 99 - Laboratory Result Diagrams: 04/28/18 00:38 04/28/18 00:38 Lab Statement: Any lab studies that have been ordered have been reviewed, and results considered in the medical decision making process. - EKG 00:55 Cardiac Rate: NL - 71 BPM EKG Rhythm: Sinus Rhythm EKG Interpretation: Everything is normal. Complex Multi-Symp Course/Dx Assessment/Plan: Patient presented with an accidental overdose. She was held and observed until 06:00. Patient will now be discharged home. - Diagnoses Provider Diagnoses: Accidental overdose Discharge - Sign-Out/Discharge Documenting (check all that apply): Patient Departure - D/C - Discharge Plan Condition: Stable Disposition: HOME Patient Education Materials: Adult Overdose (ED) Referrals: No Primary Care Phys,NOPCP [Primary Care Provider] - (Follow up with your [facility] in 1-2 days.) Additional Instructions: Follow up with [facility] at in 1-2 days. Return to the ED for changing or worsening symptoms.
[2018-04-28 00:49] LABS: Urine Appearance Clear; Urine Blood Negative (Negative); Urine Color Straw; Urine Ketones Negative (Negative); Urine Protein Negative (Negative); Urine Specific Gravity 1.009 (1.010-1.030); Urine Urobilinogen Negative (Negative)
[2018-04-28 00:49] LABS: ABS Basophils 0 10^3/ul (0-0.2); ABS Eosinophils 0.2 10^3/ul (0-0.6); ABS Lymphocytes 2.7 10^3/ul (1.0-4.8); ABS Monocytes 0.9 10^3/ul (0-0.8); ABS Neutrophils 9.9 10^3/ul (1.5-7.7); ABS Nucleated RBC 0 10^3/ul; Eosinophil % 1.6 % (0-6); Hematocrit 39 % (35-47); Hemoglobin 13.2 g/dl (12.0-16.0); Lymphocyte % 19.9 % (25-47); Mean Corpuscular HGB Conc 34 g/dl (31-36); Mean Corpuscular Hemoglobin 30 pg (27-31); Mean Corpuscular Volume 90 fL (80-97); Mean Platelet Volume 7.6 um3 (7.4-10.4); Nucleated Red Blood Cells % 0; Platelet Count 330 10^3/ul (150-450); Red Blood Count 4.34 10^6/ul (4.00-5.40); Red Cell Distribution Width 14 % (10.5-15); White Blood Count 13.7 10^3/ul (3.5-10.8)
[2018-04-28 01:05] LABS: EGFR Non-African American 71.6 (>60)
[2018-04-28] MEDS ORDERED: Metoclopramide IV* 5 MG/ML 2 ML VIAL ONE (01:12)
[2018-04-28] MEDS ORDERED: Metoclopramide IV* 5 MG/ML 2 ML VIAL IV SLOW PU ONE (01:12)
[2018-04-28] MEDS ORDERED: NS 0.9% 1000 ML*IV.FLUID IV ONE (02:18)
[2018-04-28 06:11] VITALS: BP 97/65
== END 2018-04-28 06:11 | disposition home or self-care (01) ==
LOC: ED 23:58
DX: T42.1X1A Poisoning by iminostilbenes, accidental (unintentional), initial encounter (principal); R42 Dizziness and giddiness; R20.0 Anesthesia of skin; Y92.002 Bathroom of unspecified non-institutional (private) residence as the place of occurrence of the external cause; F17.210 Nicotine dependence, cigarettes, uncomplicated
CPT/HCPCS: 36415; 80053; 80307; 80320; 80329; 81003; 84443; 84702; 85025; 93005; 96361; 96374; 99284; A9270-GY; G0480; J2765

== ENCOUNTER 2018-05-13 13:09 | Emergency (ER) | payer OTHER ==
[2018-05-13 13:21] VITALS: BP 89/53
--- NOTE | 2018-05-13 14:18 | UC ---
General HPI - HPI Summary HPI Summary: Patient states she left AMA from [facility] left her medications behind at the facility. Has an appointment with Opal banuelos on Wednesday for med refills. Is here seeking 3 days of Celexa and Trileptal and trazodone. Patient reports relapsing on cannabis. - History of Current Complaint Chief Complaint: UCMedRefill Stated Complaint: MEDICATION REFILL Time Seen by Provider: 05/13/18 13:15 Hx Obtained From: Patient Hx Last Menstrual Period: 05/10/18 Onset/Duration: Sudden Onset Timing: Constant Pain Intensity: 0 - Allergy/Home Medications Allergies/Adverse Reactions: Allergies Allergy/AdvReac Type Severity Reaction Status Date / Time No Known Allergies Allergy Verified 05/13/18 13:13 PMH/Surg Hx/FS Hx/Imm Hx Previously Healthy: No Psychological History: Depression - Surgical History Surgical History: Yes Surgery Procedure, Year, and Place: maxillary sinus bone repaired 2016 - Family History Known Family History: Positive: Other - no fam hx stroke Negative: Hypertension Family History: mother has hypothyroidism - Social History Occupation: Unemployed Lives: With Family Alcohol Use: None Alcohol Amount: twice a week Substance Use Type: None, Marijuana - recent relapse 04/2018 Substance Use Comment - Amount & Last Used: LAST USED OPIATES ON 08/06/15 Smoking Status (MU): Heavy Every Day Tobacco Smoker Type: Cigarettes Length of Time of Smoking/Using Tobacco: 1 PPD Have You Smoked in the Last Year: Yes - Immunization History Most Recent Influenza Vaccination: 06/20/12 Most Recent Tetanus Shot: Unsure Most Recent Pneumonia Vaccination: never Review of Systems Constitutional: Negative Skin: Negative Eyes: Negative ENT: Negative Respiratory: Negative Cardiovascular: Negative Gastrointestinal: Negative Genitourinary: Negative Motor: Negative Neurovascular: Negative Musculoskeletal: Negative Neurological: Negative Psychological: Negative Is Patient Immunocompromised?: No All Other Systems Reviewed And Are Negative: Yes Physical Exam Triage Information Reviewed: Yes Appearance: Well-Appearing, No Pain Distress, Well-Nourished Vital Signs: Initial Vital Signs Temp 98.6 F 05/13/18 13:14 Pulse 81 05/13/18 13:14 Resp 16 05/13/18 13:14 BP 89/53 05/13/18 13:14 Pulse Ox 100 05/13/18 13:14 Vital Signs Reviewed: Yes Eye Exam: Normal Eyes: Positive: Conjunctiva Clear ENT Exam: Normal ENT: Positive: Normal ENT inspection, Hearing grossly normal. Negative: Trismus , Muffled voice, Hoarse voice, Dental tenderness Dental Exam: Normal Neck exam: Normal Neck: Positive: Supple, Nontender Respiratory Exam: Normal Respiratory: Positive: Chest non-tender, Lungs clear, Normal breath sounds, No respiratory distress, No accessory muscle use Cardiovascular Exam: Normal Cardiovascular: Positive: RRR, No Murmur, Pulses Normal, Brisk Capillary Refill Musculoskeletal Exam: Normal Musculoskeletal: Positive: Strength Intact, ROM Intact, No Edema Neurological Exam: Normal Neurological: Positive: Alert, Muscle Tone Normal Psychological Exam: Normal Skin Exam: Normal Course/Dx - Course Course Of Treatment: cannabis relapse, mood disorder by history - Differential Dx - Multi-Symptom Provider Diagnoses: medication refill, nicotine dependant Discharge - Sign-Out/Discharge Documenting (check all that apply): Patient Departure All imaging exams completed and their final reports reviewed: No Studies - Discharge Plan Condition: Stable Disposition: HOME Prescriptions: Citalopram TAB* [CeleXA TAB*] 20 mg PO DAILY #3 tab OXcarbazepine TAB(*) [Trileptal 300 mg TAB(*)] 300 mg PO BID #6 tab Trazodone HCl 25 - 50 mg PO BEDTIME #3 tablet Patient Education Materials: Depression (ED) Referrals: No Primary Care Phys,NOPCP [Primary Care Provider] - Additional Instructions: Follow up at [facility] on Wednesday as planned - Billing Disposition and Condition Condition: STABLE Disposition: Home - Attestation Statements Provider Attestation: I was available for consult. This patient was seen by the PATRICIA. The patient was not presented to, seen by, or examined by me. -Rowena
== END 2018-05-13 14:11 | disposition home or self-care (01) ==
LOC: UCEAST 13:09
DX: Z76.0 Encounter for issue of repeat prescription (principal); F17.210 Nicotine dependence, cigarettes, uncomplicated
CPT/HCPCS: 84702; 99212; G0463

== ENCOUNTER 2018-05-18 15:41 | Emergency (ER) | payer OTHER ==
[2018-05-18 15:53] VITALS: BP 97/57
--- NOTE | 2018-05-18 16:42 | UC ---
Lower Extremity/Ankle HPI - HPI Summary HPI Summary: 32-year-old female presents with right medial ankle pain and swelling. States she was a sending her outdoor wooden stairs last night and slipped and twisted ankle. She was able to bear weight immediately after the injury and is ambulatory here in the clinic. Pain is a constant throbbing. Worsens with ambulation and weightbearing. States range of motion is intact. Associated with some mild erythema and notes an abrasion to medial ankle. She has taken mfyu-[id number] ibuprofen and ice the injury without significant improvement. - History of Current Complaint Chief Complaint: UCLowerExtremity Stated Complaint: ANKLE INJURY Time Seen by Provider: 05/18/18 16:22 Hx Obtained From: Patient Hx Last Menstrual Period: 2 wks ago ?: No Onset/Duration: Sudden Onset, Lasting Days - 2 Severity Initially: Moderate Severity Currently: Moderate Pain Intensity: 10 Aggravating Factor(s): Standing, Ambulation Alleviating Factor(s): Rest Able to Bear Weight: Yes - Allergies/Home Medications Allergies/Adverse Reactions: Allergies Allergy/AdvReac Type Severity Reaction Status Date / Time No Known Allergies Allergy Verified 05/18/18 15:53 PMH/Surg Hx/FS Hx/Imm Hx Previously Healthy: Yes Psychological History: Anxiety, Depression - Surgical History Surgical History: Yes Surgery Procedure, Year, and Place: maxillary sinus bone repaired 2016 - Family History Family History: Noncontributory - Social History Occupation: Unemployed Lives: With Family Alcohol Use: Occasionally Alcohol Amount: twice a week Substance Use Type: None Substance Use Comment - Amount & Last Used: LAST USED OPIATES ON 08/06/15 Smoking Status (MU): Heavy Every Day Tobacco Smoker Type: Cigarettes Length of Time of Smoking/Using Tobacco: 1 PPD Have You Smoked in the Last Year: Yes - Immunization History Most Recent Influenza Vaccination: 06/20/12 Most Recent Tetanus Shot: Unsure Most Recent Pneumonia Vaccination: never Review of Systems Constitutional: Negative Skin: Other - mild erythema and superficial abrasion to the right medial ankle Motor: Negative Neurovascular: Negative Musculoskeletal: Arthralgia - See history of present illness Is Patient Immunocompromised?: No All Other Systems Reviewed And Are Negative: Yes Physical Exam Triage Information Reviewed: Yes Appearance: Well-Appearing, No Pain Distress, Well-Nourished Vital Signs: Initial Vital Signs Temp 98.2 F 05/18/18 15:49 Pulse 85 05/18/18 15:49 Resp 18 05/18/18 15:49 BP 97/57 05/18/18 15:49 Pulse Ox 98 05/18/18 15:49 Vital Signs Reviewed: Yes Respiratory: Positive: No respiratory distress Cardiovascular: Positive: Pulses Normal, Brisk Capillary Refill Musculoskeletal: Positive: Strength Intact, ROM Intact - Painless active range of motion right ankle, Edema @ - Medial right ankle Neurological: Positive: Other: - Sensation intact distally Skin: Positive: Other - Mild erythema and superficial abrasion right medial ankle. See diagram. Diagnostics - Radiology No standard instances Xray Interpretation: No Acute Changes Radiology Interpretation Completed By: ED Physician - Preliminary reading by myself. No acute fracture or dislocation., Radiologist - Medial soft tissue swelling. No fracture is seen. Lower Extremity Course/Dx - Course Course Of Treatment: 32-year-old female presents with pain and swelling to right medial ankle status post twisting injury. Exam does reveal tenderness over the medial aspect of the right ankle with some mild swelling and erythema. She is also noted to have a small 1 cm superficial abrasion to the medial ankle. Ankle x-ray was negative for acute fracture or dislocation. Appears to be a mild to moderate sprain. Recommend conservative symptomatic treatment using [id number] analgesics, rest, ice, and elevation. She is to follow- up with Dr. Motley in orthopedics in 7 days if no improvement in symptoms. - Differential Dx/Diagnosis Provider Diagnoses: Right ankle sprain Discharge - Sign-Out/Discharge Documenting (check all that apply): Patient Departure All imaging exams completed and their final reports reviewed: Yes - Discharge Plan Condition: Stable Disposition: HOME Patient Education Materials: Ankle Sprain (ED) Referrals: Sandy Silveira MD [Primary Care Provider] - Bay Fernández MD [Medical Doctor] - 7 Days (If no improvement in symptoms.) Additional Instructions: Your x-ray in the clinic today did not show any evidence for fracture or dislocation. I suspect her symptoms are a [id number] sprain of the ankle. Use lzlt-jsk-kobnait acetaminophen (Tylenol) or ibuprofen (Motrin, Advil) according to directions as needed for pain. Rest the ankle as much as possible. You may continue to walk and bear weight as tolerated. Apply ice for 15-20 minutes 3-4 times a day for the next several days. [place] keep the foot elevated when sitting in order to help reduce any swelling. I have given you a referral to Dr. Motley, orthopedic surgeon, for follow-up in 7 days if needed. Call for an appointment. You may also follow up with her primary care provider if you prefer. - Billing Disposition and Condition Condition: STABLE Disposition: Home Images Feet (Multiple View): 1 - 1 cm superficial abrasion with crusting 2 - Mild erythema
--- NOTE | 2018-05-18 17:09 | RAD ---
INDICATION: Right ankle injury. TECHNIQUE: 3 views of the right ankle were obtained. FINDINGS: There is medial soft tissue swelling. The bones are in normal alignment. No fracture is seen. Joint spaces appear maintained. IMPRESSION: SOFT TISSUE SWELLING, NO FRACTURE IS SEEN.
== END 2018-05-18 17:32 | disposition home or self-care (01) ==
LOC: UCEAST 15:41
DX: S93.401A Sprain of unspecified ligament of right ankle, initial encounter (principal); F17.210 Nicotine dependence, cigarettes, uncomplicated; X50.1XXA Overexertion from prolonged static or awkward postures, initial encounter; Y93.89 Activity, other specified; Y92.9 Unspecified place or not applicable
CPT/HCPCS: 99211; G0463

== ENCOUNTER 2019-07-07 07:53 | Emergency (ER) | payer OTHER ==
--- NOTE | 2019-07-07 08:35 | ED ---
Substance Abuse/Use - HPI Summary HPI Summary: 34 year old female presents to the ED with complaints of extremity numbness secondary to heroin intake by IV yesterday. Patient reports numbness and a purple color in all of her extremities, especially at her fingers and toes. She also reports nausea and vomiting. Heroin was obtained from the same substance provider as previous intakes. Patient has a history of marijuana, cocaine, and heroin use. She does not drink alcohol. She smokes 1 PPD. - History Of Current Complaint Chief Complaint: EDGeneral Stated Complaint: HAND NUMBNESS PER PT Time Seen by Provider: 07/07/19 08:08 Hx Obtained From: Patient Hx Last Menstrual Period: 10/ ?: No Onset/Duration of Drug/ETOH Abuse: Days - Yesterday Ingestion History: Type/Name Of Drug - Heroin, Approximate Time Of Ingestion - Yesterday Overdose Characteristics: IV Timing Of Abuse: Binge Use Severity Initially: Moderate Severity Currently: Moderate Associated Signs And Symptoms: Nausea, Vomiting, Other: - extremities, especially toes and fingertips, are numb and purple - Allergies/Home Medications Allergies/Adverse Reactions: Allergies Allergy/AdvReac Type Severity Reaction Status Date / Time No Known Allergies Allergy Verified 07/07/19 07:58 PMH/Surg Hx/FS Hx/Imm Hx Endocrine/Hematology History: Denies: Hx Diabetes, Hx Thyroid Disease Cardiovascular History: Denies: Hx Congestive Heart Failure, Hx Hypertension Respiratory History: Denies: Hx Asthma, Hx Chronic Obstructive Pulmonary Disease (COPD) GI History: Denies: Hx Ulcer History: Reports: Hx Kidney Stones - 2004 Musculoskeletal History: Reports: Other Musculoskeletal History - Nasal FX w/ surgery Sensory History: Reports: Hx Contacts or Glasses Opthamlomology History: Reports: Hx Contacts or Glasses Neurological History: Reports: Hx Migraine Psychiatric History: Reports: Hx Bipolar Disorder Denies: Hx Eating Disorder, Hx of Violent Episodes Against Others - Surgical History Surgery Procedure, Year, and Place: maxillary sinus bone repaired 2016 Infectious Disease History: No Infectious Disease History: Denies: Hx Clostridium Difficile, Hx Hepatitis, Hx Human Immunodeficiency Virus (HIV), Hx of Known/Suspected MRSA, Hx Shingles, Hx Tuberculosis, Hx Known/ Suspected VRE, Hx Known/Suspected VRSA, History Other Infectious Disease, Traveled Outside the [place] in Last 30 Days - Family History Known Family History: Positive: Hypertension, Other - no fam hx stroke - Social History Alcohol Use: Occasionally Alcohol Amount: twice a week Hx Substance Use: Yes Substance Use Type: Reports: Cocaine, Heroin, Marijuana Substance Use Comment - Amount & Last Used: Relapse in 04/2019 injecting cocaine daily Hx Tobacco Use: Yes Smoking Status (MU): Heavy Every Day Tobacco Smoker Type: Cigarettes Length of Time of Smoking/Using Tobacco: 1 PPD Have You Smoked in the Last Year: Yes Review of Systems Positive: Vomiting, Nausea Positive: Other - extemities, especially fingertips and toes, are purple Positive: Numbness - extremities All Other Systems Reviewed And Are Negative: Yes Physical Exam - Summary Physical Exam Summary: VITAL SIGNS: Reviewed. GENERAL: Patient is a well-developed and nourished female who is lying comfortable in the stretcher. Patient is not in any acute respiratory distress. HEAD AND FACE: No signs of trauma. No ecchymosis, hematomas or skull depressions. No sinus tenderness. EYES: PERRLA, EOMI x 2, No injected conjunctiva, no nystagmus. EARS: Hearing grossly intact. Ear canals and tympanic membranes are within normal limits. MOUTH: Oropharynx within normal limits. NECK: Supple, trachea is midline, no adenopathy, no JVD, no carotid bruit, no c- spine tenderness, neck with full ROM. CHEST: Symmetric, no tenderness at palpation. LUNGS: Clear to auscultation bilaterally. No wheezing or crackles. CVS: irregular rate and rhythm, S1 and S2 present, no murmurs or gallops appreciated. ABDOMEN: Soft, non-tender. No signs of distention. No rebound, no guarding, and no masses palpated. Bowel sounds are normal. EXTREMITIES: FROM in all major joints, no edema, no cyanosis or clubbing. NEURO: Alert and oriented x 3. No acute neurological deficits. Speech is normal and follows commands. SKIN: Dry and warm. Track johnson on upper extremities. Triage Information Reviewed: Yes Vital Signs On Initial Exam: Initial Vitals Temp Pulse Resp BP Pulse Ox 97.2 F 99 16 131/97 100 07/07/19 07:55 07/07/19 07:55 07/07/19 07:55 07/07/19 07:55 07/07/19 07:55 Vital Signs Reviewed: Yes Procedures - Sedation Patient Received Moderate/Deep Sedation with Procedure: No Diagnostics - Vital Signs Vital Signs Temp Pulse Resp BP Pulse Ox 10/18/19 08:09 79 100 07/07/19 07:55 97.2 F 99 16 131/97 100 - Laboratory Result Diagrams: 07/07/19 08:59 07/07/19 08:59 Lab Statement: Any lab studies that have been ordered have been reviewed, and results considered in the medical decision making process. - Radiology CXR Radiology Interpretation Completed By: Radiologist Summary of Radiographic Findings: Impression shows no active cardiopulmonary disease. An ED physician has reviewed this report. - EKG 0818 Cardiac Rate: NL - 76 bpm EKG Rhythm: Sinus Rhythm Summary of EKG Findings: EKG at 0818 shows normal sinus rhythm at 76 bpm. [address]. No ST elevations. Similar to EKG on 05/14/19. An ED physician has reviewed and interpreted this report. Course/Dx - Course Assessment/Plan: Patient is a 34-year-old female who presents to the emergency room with a chief complaint of having a weird feeling after she shot heroin. She reports that she had some numbness in the upper extremities and legs. She reports that this happened yesterday. Today she has no symptoms. Blood test results without any significant abnormality except for potassium level of 3.3 and AST of 12. EKG shows a normal sinus rhythm unchanged from previous. Chest x-ray impression: No acute pathology. I discussed all the findings and test results with the patient. Patient was instructed to return to the emergency room immediately if any of the symptoms return or worsen. Plan of care was discussed with the patient and understands and agrees. All questions were answered at patient satisfaction. There were no further complaints or concerns. Lung exam before discharge: CTA B/L. Good air exchange. No wheezing or crackles heard. CVS: S1 and S2 present. No murmurs appreciated. Patient is alert and oriented x 3. Patient is hemodynamically stable. Patient will be discharged home with follow up PCP in the next 2-3 days - Diagnoses Provider Diagnoses: Adverse reaction to heroin Discharge ED - Sign-Out/Discharge Documenting (check all that apply): Patient Departure - Discharge Plan Condition: Stable Disposition: HOME Patient Education Materials: Opioid Safety (ED) Referrals: Sandy Silveira MD [Medical Doctor] - Additional Instructions: Follow up with your primary care provider in 2-3 days. Return to the Emergency Department if you experience new or worsening symptoms. - Attestation Statements Document Initiated by Scribe: Yes Documenting Scribe: Guero Lazo Provider For Whom Scribe is Documenting (Include Credential): Dr. James Oliver MD. Scribe Attestation: Guero Mckenna, scribed for Dr. James Oliver MD. on 07/07/19 at 1330. Status of Scribe Document: Ready
[2019-07-07 09:20] LABS: ABS Basophils 0.1 10^3/ul (0-0.2); ABS Eosinophils 0.2 10^3/ul (0-0.6); ABS Lymphocytes 2.9 10^3/ul (1.0-4.8); ABS Monocytes 0.6 10^3/ul (0-0.8); ABS Neutrophils 7.6 10^3/ul (1.5-7.7); Hematocrit 39 % (35-47); Hemoglobin 13.1 g/dL (12.0-16.0); Lymphocyte % 25.7 %; Mean Corpuscular HGB Conc 34 g/dL (31-36); Mean Corpuscular Hemoglobin 30 pg (27-31); Mean Corpuscular Volume 88 fL (80-97); Mean Platelet Volume 7.8 fL (7.4-10.4); Platelet Count 372 10^3/uL (150-450); Red Blood Count 4.45 10^6 /uL (3.70-4.87); Red Cell Distribution Width 14 % (10-15); White Blood Count 11.3 10^3/uL (3.5-10.8)
[2019-07-07 09:37] LABS: ALT 8 U/L (7-52); AST 12 U/L (13-39); Albumin/Globulin Ratio 1.4 (1-3); Alkaline Phosphatase 73 U/L (34-104); Anion Gap 7 mmol/L (2-11); BUN/Creatinine Ratio 6.7 (8-20); Blood Urea Nitrogen 6 mg/dL (6-24); CO2 Carbon Dioxide 29 mmol/L (22-32); Calcium 9.4 mg/dL (8.6-10.3); Chloride 105 mmol/L (101-111); Creatine Kinase 138 U/L (10-223); EGFR African American 86.7 (>60); EGFR Non-African American 71.7 (>60); Globulin 2.8 g/dL (2-4); Glucose 94 mg/dL (70-100); Magnesium 1.9 mg/dL (1.9-2.7); Potassium 3.3 mmol/L (3.5-5.0); Sodium 141 mmol/L (135-145); Total Protein 6.8 g/dL (6.4-8.9)
[2019-07-07 09:40] LABS: HCG Pregnancy < 0.60 mIU/mL
[2019-07-07] MEDS ORDERED: Potassium Chlor TAB* 20 MEQ TAB.ER PO ONE (09:46)
[2019-07-07 10:39] LABS: TSH (Thyroid Stimulating Horm) 2.54 mcIU/mL (0.34-5.60)
[2019-07-07 10:45] VITALS: BP 116/93
== END 2019-07-07 10:46 | disposition home or self-care (01) ==
LOC: ED 07:53
DX: T40.1X1A Poisoning by heroin, accidental (unintentional), initial encounter (principal); Y92.9 Unspecified place or not applicable; F31.9 Bipolar disorder, unspecified; F17.210 Nicotine dependence, cigarettes, uncomplicated; Z79.899 Other long term (current) drug therapy
CPT/HCPCS: 36415; 71046; 80053; 82550; 83735; 84443; 84702; 85025; 93005; 99282; A9270-GY

== ENCOUNTER 2019-10-10 06:43 | Emergency (ER) | payer OTHER ==
[2019-10-10] MEDS ORDERED: Tetan/Diph/Pertus SYR(Tdap)* 0.5 ML SYR(BOOSTRIX) use SYR contains LATEX IM ONE (06:51)
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
[2019-10-10 07:27] LABS: ABS Eosinophils 0.2 10^3/ul (0-0.6); ABS Lymphocytes 2.1 10^3/ul (1.0-4.8); ABS Neutrophils 12.7 10^3/ul (1.5-7.7); Eosinophil % 1.4 %; Hematocrit 38 % (35-47); Hemoglobin 12.8 g/dL (12.0-16.0); Lymphocyte % 13.4 %; Mean Corpuscular HGB Conc 34 g/dL (31-36); Mean Corpuscular Hemoglobin 29 pg (27-31); Mean Corpuscular Volume 85 fL (80-97); Mean Platelet Volume 7.9 fL (7.4-10.4); Platelet Count 422 10^3/uL (150-450); Red Blood Count 4.41 10^6 /uL (3.70-4.87); Red Cell Distribution Width 14 % (10-15)
[2019-10-10 07:49] LABS: ALT 14 U/L (7-52); AST 32 U/L (13-39); Albumin 4.5 g/dL (3.2-5.2); Albumin/Globulin Ratio 1.5 (1-3); Alkaline Phosphatase 89 U/L (34-104); Anion Gap 17 mmol/L (2-11); BUN/Creatinine Ratio 20.4 (8-20); Blood Urea Nitrogen 28 mg/dL (6-24); CO2 Carbon Dioxide 19 mmol/L (22-32); Calcium 9.4 mg/dL (8.6-10.3); Chloride 98 mmol/L (101-111); EGFR African American 53.4 (>60); EGFR Non-African American 44.1 (>60); Globulin 3.1 g/dL (2-4); Glucose 132 mg/dL (70-100); Potassium 3.6 mmol/L (3.5-5.0); Sodium 134 mmol/L (135-145); Total Protein 7.6 g/dL (6.4-8.9)
[2019-10-10 07:53] LABS: HCG Pregnancy < 0.60 mIU/mL
[2019-10-10 07:55] LABS: Acetaminophen < 15 mcg/mL; Salicylate < 2.50 mg/dL (<30)
[2019-10-10] MEDS ORDERED: Morphine 4 MG/ML VIAL (1 ml) 4 MG/ML VIAL IV ONE ×4 (07:57→17:45)
[2019-10-10] MEDS: NS 0.9% 1000 ML** 1,000 ML IV ONE ×2 (08:07→10:50)
[2019-10-10] MEDS ORDERED: HYDROmorphone INJ* 0.5 MG/0.5 ML SYRINGE IV ONE ×2 (08:21→08:34)
[2019-10-10] MEDS ORDERED: Midazolam* 1 MG/ML 2 ML VIAL (2 MG) IV SLOW PU ONE ×2 (08:54→19:07)
[2019-10-10 13:53] LABS: Calcium 8.7 mg/dL (8.6-10.3); EGFR African American 76.8 (>60); EGFR Non-African American 63.5 (>60); Potassium 4.3 mmol/L (3.5-5.0)
[2019-10-10] MEDS ORDERED: Acetaminophen TAB* 325 MG PO ONE (15:47)
[2019-10-10 16:08] LABS: Urine Benzodiazepine Screen Presumptive Positive (None Detect); Urine Opiates Screen Presumptive Positive (None Detect)
[2019-10-10] MEDS ORDERED: oxyCODONE/Acetamin 5/325 MG* TAB PO ONE (17:32)
[2019-10-10] MEDS ORDERED: Aspirin TAB* 325 MG PO ONE (17:38)
[2019-10-10] MEDS ORDERED: Nicotine* 4MG (FRUIT FLAVOR) GUM PO ONE (17:53)
[2019-10-10 18:32] VITALS: BP 122/69
[2019-10-10] MEDS ORDERED: Aspirin EC TAB* 81 MG TAB.EC ONE (19:03)
[2019-10-10] MEDS ORDERED: Aspirin 81 mg CHEW TAB* 81 MG TAB.CHEW PO ONE (19:07)
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
== END 2019-10-10 19:29 | disposition short-term general hospital (02) ==
LOC: ED 06:43
DX: T33.829A Superficial frostbite of unspecified foot, initial encounter (principal); F19.10 Other psychoactive substance abuse, uncomplicated; F17.210 Nicotine dependence, cigarettes, uncomplicated; X31.XXXA Exposure to excessive natural cold, initial encounter; Y93.9 Activity, unspecified; Y92.9 Unspecified place or not applicable
CPT/HCPCS: 36415; 80048; 80053; 80307; 80329; 84702; 85025; 90471; 90715; 96374; 96375; 96376; 99285; A9270-GY; G0480; J1170; J2250; J2270

== ENCOUNTER 2021-08-30 00:45 | Observation (INO) ==
[2021-08-30] MEDS ORDERED: Lactated Ringers 1000 ml BAG 1,000 ML IV ONE ×2 (01:01→02:42)
[2021-08-30] MEDS ORDERED: Lidocaine 2.5%/Prilocain 2.5% 5 GM TUBE TOPICAL ONE (01:10)
[2021-08-30] MEDS ORDERED: Charcoal ACTIVATED 25 GM/120 ML BTL PO ONE (02:09)
[2021-08-30 02:11] LABS: ABS Eosinophils 0.1 10^3/ul (0-0.6); ABS Lymphocytes 1.4 10^3/ul (1.0-4.8); ABS Monocytes 0.4 10^3/ul (0-0.8); ABS Neutrophils 6.3 10^3/ul (1.5-7.7); Eosinophil % 1.2 %; Hematocrit 41 % (35-47); Hemoglobin 13.7 g/dL (12.0-16.0); Mean Corpuscular HGB Conc 33 g/dL (31-36); Mean Corpuscular Hemoglobin 28 pg (27-31); Mean Corpuscular Volume 85 fL (80-97); Mean Platelet Volume 8.4 fL (7.4-10.4); Platelet Count 289 10^3/uL (150-450); Red Blood Count 4.83 10^6 /uL (3.70-4.87); Red Cell Distribution Width 16 % (10-15); White Blood Count 8.2 10^3/uL (3.5-10.8)
[2021-08-30 02:48] LABS: ALT 139 U/L (7-52); AST 59 U/L (13-39); Albumin 4.4 g/dL (3.2-5.2); Albumin/Globulin Ratio 1.4 (1-3); Alkaline Phosphatase 97 U/L (35-149); Anion Gap 14 mmol/L (2-11); Blood Urea Nitrogen 15 mg/dL (6-24); C Reactive Protein 1.31 mg/L (<8.01); CO2 Carbon Dioxide 20 mmol/L (22-32); Calcium 9.8 mg/dL (8.6-10.3); Chloride 103 mmol/L (101-111); Globulin 3.2 g/dL (2-4); Glucose 101 mg/dL (70-100); Potassium 3.7 mmol/L (3.5-5.0); Sodium 137 mmol/L (135-145); Total Protein 7.6 g/dL (6.4-8.9)
[2021-08-30 02:55] LABS: HCG Pregnancy < 0.60 mIU/mL
[2021-08-30] MEDS ORDERED: Ondansetron 4 mg VIAL 2 MG/ML 2 ml VIAL IV ONE (03:20)
[2021-08-30 03:38] LABS: Urine Appearance Clear; Urine Bilirubin Negative (Negative); Urine Blood Negative (Negative); Urine Color Colorless; Urine Glucose Negative (Negative); Urine Ketones Negative (Negative); Urine Nitrite Negative (Negative); Urine Protein Negative (Negative); Urine Specific Gravity 1.002 (1.002-1.030); Urine Urobilinogen Negative (Negative)
[2021-08-30 04:05] LABS: Acetaminophen < 15 mcg/mL; Alcohol, S < 13 mg/dL (<13); Salicylate < 2.50 mg/dL (<30)
[2021-08-30 04:11] LABS: Urine Benzodiazepine Screen None Detected (None Detect); Urine Cannabinoids Screen Presumptive Positive (None Detect); Urine Opiates Screen None Detected (None Detect)
[2021-08-30 04:54] LABS: Hepatitis C Antibody Reactive (Negative)
[2021-08-31 07:01] LABS: Albumin 4.1 g/dL (3.2-5.2); Albumin/Globulin Ratio 1.3 (1-3); Calcium 9.4 mg/dL (8.6-10.3); Globulin 3.1 g/dL (2-4); Potassium 3.9 mmol/L (3.5-5.0); Total Bilirubin 0.7 mg/dL (0.2-1.0); Total Protein 7.2 g/dL (6.4-8.9); eGFR CKD-EPI 88.5 (>60)
[2021-08-31] MEDS: Ondansetron 4 mg VIAL 2 MG/ML 2 ml VIAL IV PRN ×2 (10:21→14:36)
[2021-08-31 10:47] LABS: HIV 4th Generation Nonreactive (Nonreactive)
[2021-08-31] MEDS ORDERED: Buprenorp/Nalox 2-0.5 mg SL TB SL PRN (11:07)
[2021-08-31] MEDS ORDERED: Buprenorp/Nalox 8-2 MG FILM SL FILM ONE (11:52)
[2021-08-31 12:54] VITALS: BP 131/83
[2021-08-31] MEDS ORDERED: Buprenorp/Nalox 2-0.5 mg SL TB SL ONE (14:41)
== END 2021-08-31 15:00 | disposition home or self-care (01) ==
LOC: ED 00:45 → EDHOLD 00:45 → SUATTDRO 10:02 → EDHOLD 19:57 → SSU 20:03
PROVIDERS: ADMIT Hospitalist; ATTEND Internal Medicine

== ENCOUNTER 2022-08-05 21:45 | Inpatient (IN) ==
[2022-08-05] MEDS ORDERED: Lactated Ringers 1000 ml BAG 1,000 ML IV ONE ×2 (22:08→23:32)
[2022-08-05] MEDS ORDERED: Vancomycin 1,500 MG in NS 0.9% 250 ml 250 ML IVPB ONE (22:33)
[2022-08-05] MEDS ORDERED: cefTRIAXone 1 gm/50 mL D5W 1 GM/50 ML BAG IV ONE ×2 (22:33→23:45)
[2022-08-05 22:37] LABS: Hematocrit 38 % (35-47); Hemoglobin 12.4 g/dL (12.0-16.0); Mean Corpuscular HGB Conc 33 g/dL (31-36); Mean Corpuscular Hemoglobin 27 pg (27-31); Mean Corpuscular Volume 83 fL (80-97); Mean Platelet Volume 7.6 fL (7.4-10.4); Platelet Count 364 10^3/uL (150-450); Red Cell Distribution Width 14 % (10-15); White Blood Count 32.3 10^3/uL (3.5-10.8)
[2022-08-05 23:00] LABS: ABS Lymphocytes 1.3 10^3/ul (1.0-4.8); ABS Monocytes 1.3 10^3/ul (0-0.8); ABS Neutrophils 29.6 10^3/ul (1.5-7.7)
[2022-08-05] MEDS ORDERED: cefTRIAXone 1 GM ONETIME (ADVAN) IVPB ONE (23:00)
[2022-08-05 23:27] LABS: ALT 37 U/L (7-52); AST 29 U/L (13-39); Albumin 3.5 g/dL (3.2-5.2); Alkaline Phosphatase 96 U/L (35-149); Anion Gap 11 mmol/L (2-11); Blood Urea Nitrogen 15 mg/dL (6-24); C Reactive Protein 324.46 mg/L (<8.01); CO2 Carbon Dioxide 28 mmol/L (22-32); Calcium 8.9 mg/dL (8.6-10.3); Chloride 91 mmol/L (101-111); Globulin 3.4 g/dL (2-4); Glucose 102 mg/dL (70-100); Sodium 130 mmol/L (135-145); Total Protein 6.9 g/dL (6.4-8.9); eGFR CKD-EPI 81.2 (>60)
[2022-08-06] MEDS: Lactated Ringers 1000 ml BAG 1,000 ML IV SCH ×3 (00:56→18:03)
[2022-08-06 01:54] LABS: PCO2 Arterial 42 mmHg (35-45); PO2 Arterial 68 mmHg (80-100)
[2022-08-06] MEDS ORDERED: Norepinephrine 16MCG/ML BAGD5W 4,000 MCG/250 ML BAG IV SCH (02:00)
[2022-08-06 02:07] LABS: Urine Appearance Clear; Urine Bilirubin Negative (Negative); Urine Blood 1+ (Negative); Urine Color Yellow; Urine Glucose Negative (Negative); Urine Ketones Negative (Negative); Urine Nitrite Negative (Negative); Urine Protein Negative (Negative); Urine Specific Gravity 1.003 (1.002-1.030); Urine Urobilinogen Negative (Negative)
[2022-08-06 02:11] LABS: Urine Bacteria Absent (Absent); Urine Red Blood Cell Trace(0-2/hpf) (Absent); Urine Squamous Epithelial Cell Present (Absent); Urine White Blood Cell Trace(0-5/hpf) (Absent)
[2022-08-06 02:23] LABS: Urine Benzodiazepine Screen Presumptive Positive (None Detect); Urine Cannabinoids Screen None Detected (None Detect); Urine Opiates Screen Presumptive Positive (None Detect)
[2022-08-06 03:50] LABS: HCG Pregnancy < 0.60 mIU/mL
[2022-08-06] MEDS ORDERED: Vancomycin per Pharmacy 1 EA NOTE FOLLOW UP PRN (04:23)
[2022-08-06 06:15] LABS: Hematocrit 34 % (35-47); Hemoglobin 11.4 g/dL (12.0-16.0); Mean Corpuscular HGB Conc 34 g/dL (31-36); Mean Corpuscular Hemoglobin 28 pg (27-31); Mean Corpuscular Volume 83 fL (80-97); Mean Platelet Volume 7.4 fL (7.4-10.4); Platelet Count 281 10^3/uL (150-450); Red Cell Distribution Width 14 % (10-15)
[2022-08-06 06:26] LABS: ABS Lymphocytes 1.2 10^3/ul (1.0-4.8); ABS Monocytes 0.9 10^3/ul (0-0.8); ABS Neutrophils 23.9 10^3/ul (1.5-7.7); Eosinophil % 0.1 %; Lymphocyte % 4.7 %
[2022-08-06 07:04] LABS: Albumin 2.5 g/dL (3.2-5.2); Calcium 8.2 mg/dL (8.6-10.3); Globulin 2.5 g/dL (2-4); Magnesium 1.9 mg/dL (1.9-2.7); Potassium 3.5 mmol/L (3.5-5.0); Total Bilirubin 0.4 mg/dL (0.2-1.0); eGFR CKD-EPI 115.4 (>60)
[2022-08-06] MEDS ORDERED: Potassium Chlor 20 meq TAB.ER PO ONE (09:14)
[2022-08-06] MEDS: Hydrocortisone INJ 100 MG/2ML 2 ML VIAL IV SCH ×2 (09:29→17:09)
[2022-08-06] MEDS ORDERED: Buprenorphine 2 mg SL TAB SL PRN (14:41)
[2022-08-06] MEDS ORDERED: Haloperidol 5 mg/ml SDV IV/IM 5 MG/ML AMP ONE (15:51)
[2022-08-06] MEDS ORDERED: Haloperidol 5 mg/ml SDV IV/IM 5 MG/ML AMP IM PRN (15:51)
[2022-08-06] MEDS ORDERED: Haloperidol 5 mg/ml SDV IV/IM 5 MG/ML AMP IV SLOW PU ONE ×2 (15:55→19:19)
[2022-08-06] MEDS: Vancomycin 1000 MG in NS 0.9% 250 ML IVPB SCH (17:05)
[2022-08-06] MEDS ORDERED: HYDROmorphone 0.5 MG/0.5 ML SYRINGE ONE (19:56)
[2022-08-06] MEDS ORDERED: HYDROmorphone 0.5 MG/0.5 ML SYRINGE IV SLOW PU ONE (20:20)
[2022-08-06] MEDS ORDERED: Dexmedetomidine 1,000 MCG in NS 0.9% 250 ml 240 ML IV SCH (22:00)
[2022-08-06] MEDS ORDERED: cefTRIAXone 1 gm/50 mL D5W 1 GM/50 ML BAG IV SCH (22:00)
[2022-08-07] MEDS: Lactated Ringers 1000 ml BAG 1,000 ML IV SCH ×2 (00:45→16:20)
[2022-08-07] MEDS: Vancomycin 1000 MG in NS 0.9% 250 ML IVPB SCH ×2 (05:03→19:00)
[2022-08-07] MEDS ORDERED: Lactated Ringers 1000 ml BAG 1,000 ML IV ONE (05:58)
[2022-08-07] MEDS ORDERED: Ondansetron 4 mg VIAL 2 MG/ML 2 ml VIAL IV PRN (07:44)
[2022-08-07] MEDS ORDERED: Enoxaparin 40 MG/0.4 ML SYR SUBCUT SCH (10:00)
[2022-08-07 14:35] LABS: Hematocrit 32 % (35-47); Hemoglobin 10.8 g/dL (12.0-16.0); Mean Corpuscular HGB Conc 33 g/dL (31-36); Mean Corpuscular Hemoglobin 28 pg (27-31); Mean Corpuscular Volume 84 fL (80-97); Mean Platelet Volume 7.6 fL (7.4-10.4); Platelet Count 279 10^3/uL (150-450); Red Blood Count 3.88 10^6 /uL (3.70-4.87); Red Cell Distribution Width 14 % (10-15)
[2022-08-07] MEDS ORDERED: Lidocaine 1% MPF 2 ML VIAL ONE (15:00)
[2022-08-07] MEDS ORDERED: Propofol 10 MG/ML 50 ML BTL ONE (15:00)
[2022-08-07 15:28] LABS: Magnesium 1.9 mg/dL (1.9-2.7); Potassium 3.8 mmol/L (3.5-5.0)
[2022-08-07] MEDS ORDERED: Potassium Chlor 20 meq TAB.ER PO ONE (16:34)
[2022-08-07] MEDS ORDERED: LORazepam 2 mg VIAL 1 ml IV PUSH ONE (18:08)
[2022-08-07] MEDS ORDERED: Lorazepam PYXIS KEY PRN (18:08)
[2022-08-07] MEDS ORDERED: Morphine 4 MG/ML VIAL (1 ml) IV ONE (18:08)
[2022-08-07 20:35] VITALS: BP 97/79
[2022-08-08] MEDS ORDERED: Vancomycin Trough Check NOTE FOLLOW UP ONE (05:30)
== END 2022-08-07 20:35 | disposition left against medical advice (07) | DRG 720 ==
LOC: ED 21:45 → EDHOLD 08-06 00:48 → ICU 08-06 02:59
PROVIDERS: ADMIT Internal Medicine; ATTEND Internal Medicine

== ENCOUNTER 2022-08-14 12:04 | Inpatient (IN) ==
[2022-08-14 14:09] LABS: ABS Eosinophils 0.1 10^3/ul (0-0.6); ABS Lymphocytes 2.3 10^3/ul (1.0-4.8); ABS Monocytes 0.6 10^3/ul (0-0.8); ABS Neutrophils 10.7 10^3/ul (1.5-7.7); Eosinophil % 0.7 %; Hematocrit 31 % (35-47); Hemoglobin 10.1 g/dL (12.0-16.0); Lymphocyte % 16.8 %; Mean Corpuscular HGB Conc 33 g/dL (31-36); Mean Corpuscular Hemoglobin 27 pg (27-31); Mean Corpuscular Volume 84 fL (80-97); Mean Platelet Volume 7.2 fL (7.4-10.4); Platelet Count 459 10^3/uL (150-450); Red Blood Count 3.69 10^6 /uL (3.70-4.87); Red Cell Distribution Width 15 % (10-15); White Blood Count 13.8 10^3/uL (3.5-10.8)
[2022-08-14 14:22] LABS: INR 1.34 (0.89-1.11)
[2022-08-14 14:33] LABS: High Sens Troponin Baseline < 3 pg/mL (<15)
[2022-08-14 14:47] LABS: ALT 150 U/L (7-52); AST 136 U/L (13-39); Albumin 2.7 g/dL (3.2-5.2); Albumin/Globulin Ratio 0.7 (1-3); Alkaline Phosphatase 102 U/L (35-149); Anion Gap 6 mmol/L (2-11); Blood Urea Nitrogen 12 mg/dL (6-24); CO2 Carbon Dioxide 29 mmol/L (22-32); CRP High Sensitivity 59.87 mg/L (<2.00); Calcium 8.2 mg/dL (8.6-10.3); Chloride 97 mmol/L (101-111); Globulin 3.9 g/dL (2-4); Glucose 100 mg/dL (70-100); Potassium 4.6 mmol/L (3.5-5.0); Sodium 132 mmol/L (135-145); Total Protein 6.6 g/dL (6.4-8.9); eGFR CKD-EPI 106.8 (>60)
[2022-08-14] MEDS ORDERED: cefTRIAXone 1 gm/50 mL D5W 1 GM/50 ML BAG IV ONE (15:42)
[2022-08-14] MEDS ORDERED: Ondansetron 4 mg VIAL 2 MG/ML 2 ml VIAL IV PRN (15:51)
[2022-08-14 15:54] LABS: Erythrocyte Sed Rate 90 mm/Hr (0-19)
[2022-08-14] MEDS ORDERED: NS 0.9% 1000 ml BAG 1,000 ML IV ONE (16:06)
[2022-08-14] MEDS ORDERED: Vancomycin 1,000 MG in NS 0.9% 250 ml 250 ML IVPB ONE (16:09)
[2022-08-14] MEDS ORDERED: Vancomycin 750 MG in NS 0.9% 250 ML IVPB ONE (16:18)
[2022-08-14] MEDS ORDERED: Vancomycin per Pharmacy 1 EA NOTE FOLLOW UP SCH (17:00)
[2022-08-14 17:12] LABS: HCG Pregnancy 0.69 mIU/mL
[2022-08-14] MEDS: Nicotine PATCH 21 MG/24 HR PATCH TRANSDERM SCH (19:24)
[2022-08-15] MEDS: Enoxaparin 40 MG/0.4 ML SYR SUBCUT SCH ×2 (01:26→17:09)
[2022-08-15] MEDS: Nicotine PATCH 21 MG/24 HR PATCH TRANSDERM SCH (09:50)
[2022-08-15] MEDS: cefTRIAXone 1 gm/50 mL D5W 1 GM/50 ML BAG IV SCH (16:00)
[2022-08-16 01:50] LABS: Urine Appearance Clear; Urine Bilirubin Negative (Negative); Urine Blood Negative (Negative); Urine Color Yellow; Urine Glucose Negative (Negative); Urine Ketones Negative (Negative); Urine Nitrite Negative (Negative); Urine Protein Negative (Negative); Urine Specific Gravity 1.016 (1.002-1.030); Urine Urobilinogen Negative (Negative)
[2022-08-16] MEDS: Buprenorphine 2 mg SL TAB SL PRN ×6 (04:11→20:33)
[2022-08-16] MEDS: Nicotine PATCH 21 MG/24 HR PATCH TRANSDERM SCH (08:26)
[2022-08-16 11:27] LABS: ABS Basophils 0.1 10^3/ul (0-0.2); ABS Lymphocytes 1.9 10^3/ul (1.0-4.8); ABS Monocytes 0.7 10^3/ul (0-0.8); ABS Neutrophils 7.5 10^3/ul (1.5-7.7); Eosinophil % 0.1 %; Hematocrit 31 % (35-47); Hemoglobin 10.4 g/dL (12.0-16.0); Lymphocyte % 18.9 %; Mean Corpuscular HGB Conc 33 g/dL (31-36); Mean Corpuscular Hemoglobin 28 pg (27-31); Mean Corpuscular Volume 84 fL (80-97); Mean Platelet Volume 7.2 fL (7.4-10.4); Platelet Count 554 10^3/uL (150-450); Red Blood Count 3.72 10^6 /uL (3.70-4.87); Red Cell Distribution Width 15 % (10-15); White Blood Count 10.2 10^3/uL (3.5-10.8)
[2022-08-16 12:00] LABS: Albumin/Globulin Ratio 0.8 (1-3); C Reactive Protein 20.12 mg/L (<8.01); Calcium 8.7 mg/dL (8.6-10.3); Potassium 4.3 mmol/L (3.5-5.0); Total Bilirubin 0.3 mg/dL (0.2-1.0); eGFR CKD-EPI 117.6 (>60)
[2022-08-16] MEDS: cefTRIAXone 1 gm/50 mL D5W 1 GM/50 ML BAG IV SCH (15:54)
[2022-08-16] MEDS: Enoxaparin 40 MG/0.4 ML SYR SUBCUT SCH (15:57)
[2022-08-17] MEDS: Nicotine PATCH 21 MG/24 HR PATCH TRANSDERM SCH (07:57)
[2022-08-17] MEDS: Buprenorphine 2 mg SL TAB SL PRN ×2 (07:58→18:34)
[2022-08-17 11:54] LABS: HIV 4th Generation Nonreactive (Nonreactive)
[2022-08-17] MEDS ORDERED: Iohexol 350 (CONTRAST) 500 ML MDV IV ONE (12:20)
[2022-08-17] MEDS: cefTRIAXone 1 gm/50 mL D5W 1 GM/50 ML BAG IV SCH (17:00)
[2022-08-17] MEDS: Enoxaparin 40 MG/0.4 ML SYR SUBCUT SCH (17:51)
[2022-08-18] MEDS: Buprenorphine 2 mg SL TAB SL PRN ×2 (05:06→19:15)
[2022-08-18] MEDS: Nicotine PATCH 21 MG/24 HR PATCH TRANSDERM SCH (09:53)
[2022-08-18 10:46] LABS: ABS Basophils 0.1 10^3/ul (0-0.2); ABS Lymphocytes 2.3 10^3/ul (1.0-4.8); ABS Monocytes 0.8 10^3/ul (0-0.8); ABS Neutrophils 8.7 10^3/ul (1.5-7.7); Eosinophil % 0.4 %; Hematocrit 35 % (35-47); Hemoglobin 11.4 g/dL (12.0-16.0); Lymphocyte % 19.1 %; Mean Corpuscular HGB Conc 33 g/dL (31-36); Mean Corpuscular Hemoglobin 28 pg (27-31); Mean Corpuscular Volume 84 fL (80-97); Mean Platelet Volume 6.7 fL (7.4-10.4); Platelet Count 545 10^3/uL (150-450); Red Blood Count 4.11 10^6 /uL (3.70-4.87); Red Cell Distribution Width 15 % (10-15); White Blood Count 11.9 10^3/uL (3.5-10.8)
[2022-08-18 11:48] LABS: Calcium 8.9 mg/dL (8.6-10.3); Potassium 4.5 mmol/L (3.5-5.0); eGFR CKD-EPI 115.8 (>60)
[2022-08-18 13:15] LABS: Hepatitis B Surface Ab Immune (Immune)
[2022-08-18 15:05] LABS: Total Protein 6.8 g/dL (6.4-8.9)
[2022-08-18] MEDS: cefTRIAXone 1 gm/50 mL D5W 1 GM/50 ML BAG IV SCH (17:53)
[2022-08-18 18:03] LABS: Hepatitis B Surface Antigen Nonreactive (Nonreactive)
[2022-08-18] MEDS: Nicotine GUM 2MG FRUIT FLAVOR PO PRN (21:05)
[2022-08-19] MEDS: Buprenorphine 2 mg SL TAB SL PRN ×2 (05:04→17:01)
[2022-08-19] MEDS: Nicotine PATCH 21 MG/24 HR PATCH TRANSDERM SCH (09:37)
[2022-08-19] MEDS: cefTRIAXone 1 gm/50 mL D5W 1 GM/50 ML BAG IV SCH (15:59)
[2022-08-19 16:54] LABS: Body Fluid Appearance Bloody; Body Fluid Color Red; Body Fluid Source Pleural Fluid
[2022-08-19 18:59] LABS: Body Fluid Mono 9 %; Body Fluid Other Cells 9; Body Fluid Total Cells Counted 57
[2022-08-20] MEDS: Nicotine PATCH 21 MG/24 HR PATCH TRANSDERM SCH (08:53)
[2022-08-20] MEDS: Nicotine GUM 2MG FRUIT FLAVOR PO PRN (08:56)
[2022-08-20 09:39] LABS: ABS Monocytes 0.6 10^3/ul (0-0.8); ABS Neutrophils 4.9 10^3/ul (1.5-7.7); Eosinophil % 0.6 %; Hematocrit 31 % (35-47); Hemoglobin 10.1 g/dL (12.0-16.0); Lymphocyte % 26.8 %; Mean Corpuscular HGB Conc 32 g/dL (31-36); Mean Corpuscular Hemoglobin 27 pg (27-31); Mean Corpuscular Volume 84 fL (80-97); Mean Platelet Volume 6.7 fL (7.4-10.4); Nucleated Red Blood Cells % 0.1; Platelet Count 365 10^3/uL (150-450); Red Blood Count 3.69 10^6 /uL (3.70-4.87); Red Cell Distribution Width 16 % (10-15); White Blood Count 7.6 10^3/uL (3.5-10.8)
[2022-08-20 10:34] LABS: Albumin 3.2 g/dL (3.2-5.2); Albumin/Globulin Ratio 0.9 (1-3); Calcium 8.9 mg/dL (8.6-10.3); Globulin 3.5 g/dL (2-4); Potassium 4.5 mmol/L (3.5-5.0); Total Bilirubin 0.2 mg/dL (0.2-1.0); Total Protein 6.7 g/dL (6.4-8.9); eGFR CKD-EPI 112.2 (>60)
[2022-08-20 11:42] LABS: Hepatitis C Genotype 3 (Undetected)
[2022-08-20 12:01] VITALS: BP 93/59
[2022-08-20] MEDS: cefTRIAXone 1 gm/50 mL D5W 1 GM/50 ML BAG IV SCH (14:18)
[2022-08-21 10:53] LABS: ActiTest Interpretation minimal activity; Alanine Aminotransferase (ALT) 94 U/L (7-45); Alpha-2-Macroglobulin, S 237 mg/dL (100 - 280); Apolipoprotein A1, S 98 mg/dL (>=140); Bilirubin, Total, S <0.2 mg/dL (<=1.2); BioPredictive Serial Number 4131636; FibroTest Interpretation no fibrosis; Gamma Glutamyltransferase GGT 63 U/L (5 - 36); Haptoglobin, S 374 mg/dL (30 - 200)
== END 2022-08-20 15:10 | disposition home or self-care (01) | DRG 193 ==
LOC: ED 12:04 → EDHOLD 15:51 → SUATTDRO 15:51 → MEDTELE 21:14
PROVIDERS: ADMIT Internal Medicine; ATTEND Internal Medicine